=== PATIENT | male | born 1945 | race Caucasian/White ===

== ENCOUNTER 2022-08-15 08:26 | Inpatient (IN) ==
[2022-08-15] MEDS ORDERED: SODIUM CHLORIDE 0.9% 1000ML 500 ML IV ONE (09:25)
[2022-08-15] MEDS ORDERED: SODIUM CHLORIDE 0.9% 1000ML 1,000 ML IV SCH (09:30)
[2022-08-15 09:47] LABS: Basophils # (auto) 0.03 K/uL (0-0.2); Basophils % (auto) 0.5 %; Eosinophils # (auto) 0.15 K/uL (0-0.50); Eosinophils % (auto) 2.6 %; Hematocrit (blood only) 33.4 % (42.0-52.0); Hemoglobin 10.9 g/dl (14.0-18.0); Immature Granulocytes # (auto) 0.04 K/uL (0.01-0.20); Immature Granulocytes % (auto) 0.7 %; Lymphocytes # (auto) 1.02 K/uL (1.2-3.4); Lymphocytes % (auto) 17.4 %; Mean Corpuscular Hemoglobin 31.1 pg (25.0-34.0); Mean Corpuscular Hgb Conc 32.6 g/dL (32.0-36.0); Mean Corpuscular Volume 95.4 fL (80.0-100.0); Mean Platelet Volume 9.7 fL (9.4-12.4); Monocytes % (auto) 8.5 %; Neutrophils # (auto) 4.11 K/uL (1.40-6.50); Neutrophils % (auto) 70.3 %; Platelet Count 293 K/uL (130-400); RDW Coefficient of Variation 13.5 % (11.5-14.5); White Blood Count 5.85 K/ul (4.8-10.8)
[2022-08-15 10:04] LABS: Alanine Aminotransferase 9 U/L (7-52); Albumin Level 3.6 gm/dl (3.4-5.0); Alkaline Phosphatase 88 U/L (34-104); Anion Gap 4 (3-11); Aspartate Aminotransferase 11 U/L (13-39); BUN Creatinine Ratio 15.3 (10-20); Bilirubin,Total 0.3 mg/dl (0.2-1.0); Blood Urea Nitrogen 19 mg/dl (6-23); C Reactive Protein < 0.50 mg/dl (0-0.5); Calcium 9.8 mg/dl (8.6-10.3); Carbon Dioxide 25 mmol/L (21-32); Chloride 105 mmol/L (98-107); Est GFR (African American) 65.5 ml/min; Est GFR (Non-African American) 56.5 ml/min; Globulin 3.7 gm/dl (2.5-4.0); Glucose 101 mg/dl (70-99(Fasting)); Lipase 40 U/L (11-82); Potassium 4.4 mmol/L (3.5-5.1); Sodium 134 mmol/L (136-145); Total Protein 7.3 gm/dl (6.0-8.3)
[2022-08-15 10:15] LABS: INR 2.3 (0.9-1.1)
[2022-08-15] MEDS ORDERED: ONDANSETRON INJ 2 MG/ML 2 ML VIAL IV STA (10:29)
[2022-08-15] MEDS: HYDROmorphone INJ 0.5 MG/0.5 ML SYR IV PRN ×2 (10:40→22:01)
--- NOTE | 2022-08-15 10:42 | CT Scan Report ---
ABDOMEN AND PELVIS CT WITHOUT CONTRAST CT DOSE: HISTORY: Left lower quadrant abd pain, low back pain TECHNIQUE: Multiaxial CT images of the abdomen and pelvis were performed without contrast. A dose lo wering technique was utilized adhering to the principles of ALARA. COMPARISON STUDY: Lumbar spine CT 06/22/2022. FINDINGS: Small calcified pleural plaque within the left lung posteriorly. No pneumoperitoneum. No pn eumatosis. There are poststernotomy changes. Old, healed left-sided rib fractures are noted. Paravert ebral edema at the L3-L4 level has progressed. There scattered erosive changes within the inferior en dplate of L3 and superior endplate of L4 which have also progressed. Dominant focus of erosion at the inferior endplate of L3 measures 1.8 cm. There is an acute nondisplaced fracture within the left lat eral aspect of the L3 inferior endplate. No significant loss of height at this time. Mild dextroscoli osis again noted. Pacemaker wires are noted. Cholelithiasis. No gallbladder wall thickening. There ar e 2 small hypodense lesions within the liver with the largest measuring 8 mm. These are technically t oo small to characterize but favor cysts. The unenhanced spleen, adrenal glands, and pancreas unremar kable. No renal or ureteral stones. No hydronephrosis. There is a 1 cm hypodense lesion within the up per pole of the right kidney. This is incompletely characterized on this noncontrast study but favors a cyst. No retroperitoneal lymphadenopathy. Moderate calcified plaque within the normal caliber abdo hailey aorta. No pelvic lymphadenopathy or pelvic free fluid. Normal bladder. Suboptimal evaluation fo r bowel pathology due to the lack of intravenous and oral contrast. However, there is no definite bow el wall thickening or obstruction. The appendix is surgically absent. IMPRESSION: 1. Progressive erosive change and paravertebral edema at the L3-L4 disc space level with a small acut e fracture at the left side of the L3 inferior endplate. No significant loss of height at this time. The progressive erosive change is nonspecific but concerning for a discitis/osteomyelitis. Pathologic lesions are considered less likely. 2. No bowel wall thickening or obstruction. 3. Cholelithiasis. No gallbladder wall thickening. 4. Additional findings as described above. ACT 112: Negative or not required by law. Electronically signed by: Alvarado Loo M.D. 08/15/2022 10:41 AM
[2022-08-15 10:54] LABS: Appearance Urine Clear (Clear); Bilirubin Urine Negative (Negative); Blood Urine Negative (Negative); Color Urine Yellow; Glucose Urine UA Negative (Negative); Ketones Urine Negative (Negative); Leukocyte Esterase Urine Negative (Negative); Nitrite Urine Negative (Negative); Protein Urine Negative (Negative); Specific Gravity Urine 1.013 (1.000-1.030); Urobilinogen Urine Negative (Negative); pH Urine 5.5 (4.5-7.5)
--- NOTE | 2022-08-15 11:13 | CT Scan Report ---
CT SCAN OF THE LUMBAR SPINE WITHOUT IV CONTRAST CLINICAL HISTORY: Low back pain. COMPARISON STUDY: CT scan of the lumbar spine dated 06/22/2022. TECHNIQUE: CT scan of the lumbar spine is performed from the lower thoracic spine to the sacrum. Imag es are reviewed in the axial, sagittal, and coronal planes. IV contrast was not administered for this examination. A dose lowering technique was utilized adhering to the principles of ALARA. CT DOSE: 1391.09 mGy.cm FINDINGS: The skeletal structures are osteopenic. Vertebral body height is maintained throughout the lumbar spine. There is a small acute fracture of the left inferior endplate of L3. No additional acut e fracture is seen. There is no malalignment. There is developing erosive change within the inferior endplate of L3 and the superior endplate of L4 with significant paravertebral edema. This represents a significant change from 06/22/2022. The appearance is highly suspicious for discitis/osteomyelitis. T he transverse and spinous processes appear intact. Anterior and lateral marginal osteophytes are seen throughout. There is no spondylolysis. No osteoblastic disease is seen. There is moderate disc space narrowing at L3-L4. Mild disc space narrowing is seen at the remaining lumbar levels. Posterior disc osteophyte complexes are seen at several levels. There is no CT evidence of high-grade central canal stenosis. Mild facet arthropathy is noted in the lower lumbar region. Minimal dextrocurvature is yolanda tered at L3. The visualized sacrum and bony pelvis appear intact. There is mild fatty atrophy of the paraspinous musculature. Advanced atherosclerotic calcification is noted in the abdominal aorta. IMPRESSION: 1. There is significant erosive endplate change on both sides of the disc at L3-L4 with associated pa ravertebral edema. This has significantly progressed as compared to 06/22/2022 and is highly suspicious for discitis/osteomyelitis. Rapidly progressive erosive degenerative change is considered less likel y but could appear similar. Clinical correlation will be essential. 2. Small acute fracture of the left side of the L3 inferior endplate. 3. No additional fracture is identified. 4. Osteopenia and mild spondylosis as above. ACT 112: Negative or not required by law. Dictated: 08/15/2022 10:14 AM Transcribed: 08/15/2022 11:09 AM Michael [id number] [email or web address] Electronically signed by: Narinder Barbour M.D. 08/15/2022 11:11 AM
--- NOTE | 2022-08-15 11:35 | History & Physical Report ---
Date of Service August 15, 2022 Assessment & Plan (1) Fracture of lumbar spine: Plan: - Admit to med surg - INR 2.3 today, given vitamin K 5 mg p.o., will hold Coumadin and Plavix dosing tonight, planning for radiology, IR procedure to evaluate for discitis tomorrow. Need INR to be 1.5 or less. Trend with a.m. labs. Discussed with Dr. Loo -Pain management ordered, bowel regimen -WBC 5.85, afebrile, lactate 0.9, hold on IV antibiotic until after fluid anal ysis if possible, blood cultures x2, CRP negative, ESR 56 -Imaging reviewed personally: Progressive erosive change and paravertebral edema at the L3-L4 disc space level with a small acute fracture at the left side of the L3 inferior endplate. No significant loss of height at this time. The progressive erosive change is nonspecific but concerning for a discitis/osteomyelitis. Pathologic lesions are considered less likely. -PT/OT consults -Consult Dr. Mario, ortho spine for further recommendations (2) CAD (coronary artery disease): (3) S/P CABG x 4: (4) Paroxysmal A-fib: (5) Pacemaker: (6) Anticoagulated: (7) HTN (hypertension): (8) HLD (hyperlipidemia): Plan: -May continue all home medications except for holding Coumadin and Plavix today secondary to above -Amiodarone 200 mg, atorvastatin 80 mg, Imdur 30 mg, HCTZ 12.5 mg, losartan 100 mg, potassium supplement - Last echo reviewed from May 2012 showing mild aortic sclerosis, left ventricular systolic function is normal. No segmental wall motion abnormality. LVEF 60%. - Last EKG reviewed from 06/15/22 showing atrial paced rhythm with prolonged AV conduction. (9) DM type 2 (diabetes mellitus, type 2): Plan: -Last A1c was 5.8, recheck with a.m. labs -ISS with Accu-Cheks ACHS, holding metformin - Allow diet today and will make NPO after midnight (10) Chronic kidney disease (CKD), stage III (moderate): Plan: - Cr./BUN stable, trend with am labs DVT PPx: - scds, holding Coumadin and Plavix as above CODE: Conditional code, no CPR, intubation okay Dispo: From home, likely to remain in the hospital x 1-2 days A total of 80 minutes were spent with greater than 50% of that time face to face with the patient, personally reviewing all current laboratories, imaging studies, past medication reconciliation, outpatient chart review, and discussion with specialists to collaborate care for the patient with attending. Please see attending documentation for corrections and/or additions. History of Present Illness Chief Complaint: Back pain Primary Care Provider: PRATIBHA Valdez This is a 77-year-old male with PMHx of CAD, CABG, paroxysmal A-fib with pacemaker, anticoagulated with Coumadin and Plavix, HTN, CKD, DM type II. He sustained a mechanical fall on 05/26/2022 where he subsequently developed lower back pain which radiated down into the left buttock, lateral thigh and occasionally into his calf. He presented to [facility] emergency on multiple occasions since such injury. CT L hip - no acute fracture or AVN, mild OA. CT lumbar spine - mild scoliotic curvature with subtle defect of anterior superior endplate L4 which is new since 10/06/21, moderate facet arthropathy, no significant central or foraminal narrowing. CT pelvis - no acute fracture. Surgical consultation 06/25, recommended conservative care for the subtle compression fracture at L3/4. He was recently set up to follow with orthopedic spine in [facility], and is scheduled on 08/27/2022. He then is temporarily scheduled for lumbar spine procedure on 09/30 at [facility]. It appears that they were going to hold Plavix x1 week and Coumadin x5 days prior to this procedure on outpatient epic review. Today the patient INR is 2.3. He reports that his pain has gotten worse over the last few days, has been using a cane and a walker at baseline, and notes that his pain currently is a 6/7 after receiving medication here in the ER. At home he has only been using Tylenol. He did not feel that he can wait until mid September for a pain management injection in his spine, so presented here in hopes of getting things expedited. Allergies Allergy/AdvReac Type Severity Reaction Status Date / Time tamsulosin [From Flomax] Allergy Severe It made me Unverified 08/15/22 11:24 pass out Home Medications Medication Instructions Recorded Confirmed Type amiodarone 200 mg tablet 200 mg PO QAM 08/15/22 08/15/22 History atorvastatin 80 mg tablet 80 mg PO HS 08/15/22 08/15/22 History clopidogrel 75 mg tablet 75 mg PO QAM 08/15/22 08/15/22 History cyanocobalamin (vitamin B-12) 1,000 mcg PO DAILY 08/15/22 08/15/22 History 1,000 mcg tablet (Vitamin B-12) gabapentin 100 mg capsule 100 mg PO TID 08/15/22 08/15/22 History hydrochlorothiazide 12.5 mg capsule 12.5 mg PO QAM 08/15/22 08/15/22 History isosorbide mononitrate 30 mg 30 mg PO QAM 08/15/22 08/15/22 History tablet,extended release 24 hr lidocaine 4 % topical patch 1 patch topical QAM PRN Pain 08/15/22 08/15/22 History losartan 100 mg tablet 100 mg PO QAM 08/15/22 08/15/22 History metformin 500 mg tablet,extended 500 mg PO BID 08/15/22 08/15/22 History release 24 hr metoprolol tartrate 50 mg tablet 50 mg PO BID 08/15/22 08/15/22 History nitroglycerin 0.4 mg sublingual 0.4 mg sublingual DIRECTED PRN 08/15/22 08/15/22 History tablet Chest Pain potassium chloride 10 mEq 10 meq PO BID 08/15/22 08/15/22 History tablet,extended release sertraline 100 mg tablet 200 mg PO DAILY 08/15/22 08/15/22 History sildenafil (pulm.hypertension) 20 20 mg PO DAILY PRN Sexual Activity 08/15/22 08/15/22 History mg tablet tizanidine 4 mg tablet 2 - 4 mg PO BID PRN MUSCLE SPASMS 08/15/22 08/15/22 History warfarin 2 mg tablet 2 mg PO HS 08/15/22 08/15/22 History Past Med/Surg History Medical History (Updated 08/15/22 @ 15:20 by Judd Flores MD) Anticoagulated Bilateral carotid artery stenosis CAD (coronary artery disease) Chronic kidney disease (CKD), stage III (moderate) DM type 2 (diabetes mellitus, type 2) Fall HLD (hyperlipidemia) HTN (hypertension) Lower back pain Pacemaker Paroxysmal A-fib Surgical History (Updated 08/15/22 @ 11:42 by Amanda Grove PA-C) H/O abdominal surgery Hx of appendectomy Hx of colonoscopy Hx of esophagogastroduodenoscopy S/P CABG x 4 S/P cataract surgery Status post trigger finger release Family History (Updated 08/15/22 @ 11:43 by Amanda Grove PA-C) Father Cancer Mother Coronary heart disease Social History (Updated 08/15/22 @ 11:43 by Amanda Grove PA-C) Smoking Status: Never smoker Hx Alcohol Use: Yes Alcohol type: beer Alcohol type Comment: 2 per week Feels Safe at Home: Yes Review of Systems Review of Systems: constitutional: No fever, sweats or chills Eyes: No diplopia, no worsening or blurred vision ENT: normal hearing, no trouble swallowing Respiratory: No cough, sputum, dyspnea at rest or on exertion Cardiovascular: No chest pain, tightness or palpitations Abdomen: No pain, nausea, vomiting, diarrhea or constipation Musculoskeletal: No joint pain, calf pain, swelling Back: lumbar back pain, worse in the left side, buttocks and sometimes down the left leg Neurologic: No weakness, numbness/tingling, or balance problems, using a cane/walker at baseline Psychiatric: No anxiety or depression Skin: No rash or itch Physical Exam Physical Exam: General: awake, alert, no apparent distress, +unkempt Head: Normocephalic, atraumatic ENT: PERRL, EOMI, no pharyngeal exudate, mucous membranes moist, + poor dentition Chest: Clear to auscultation, on room air, no adventitious breath sounds Cardiac: Regular rate and rhythm, no murmur, no JVD, normal peripheral pulses, good capillary refill Abdominal: NABS x 4 quadrants, soft, nondistended, nontender to palpation, no rebound or guarding Back: Point tenderness over L3-L4 space, pain with palpation along left sided lower back Extremities: Normal inspection, no peripheral edema or erythema, calfs nontender to palpation Psych: Normal mood and affect Neuro: AAO x 3, strength intact bilaterally and rated 5/5, no motor deficits, speech is clear, no peripheral sensory deficits Skin: arec Results & Data Results & Data Vital Signs (Past 12 Hours) Vital Signs Temp Pulse Pulse Resp BP BP Pulse Ox 08/15/22 10:15 58 L 18 162/91 H 100 08/15/22 09:21 121/81 08/15/22 08:36 36.6 C 56 L 19 87/60 L 96 O2 Del Method 08/15/22 10:15 Room Air 08/15/22 09:21 08/15/22 08:36 Room Air Laboratory Results 08/15/22 11:31 Aerobic Blood Culture - Pending Blood Anaerobic Blood Culture - Pending 08/15/22 11:43 Aerobic Blood Culture - Pending Blood Anaerobic Blood Culture - Pending 08/15/22 08/15/22 08/15/22 11:31 10:40 09:34 WBC RBC Hgb Hct MCV MCH MCHC RDW Std Deviation RDW Coeff of Ju Plt Count MPV Immature Gran % (Auto) Neut % (Auto) Lymph % (Auto) [place] % (Auto) Eos % (Auto) Baso % (Auto) Neut # (Auto) Lymph # (Auto) [place] # (Auto) Eos # (Auto) Baso # (Auto) Immature Gran # (Auto) ESR PT INR Sodium 134 L Potassium 4.4 Chloride 105 Carbon Dioxide 25 Anion Gap 4 BUN 19 Creatinine 1.24 Est Cr Clr Drug Dosing Not Reportable Est GFR ( Amer) 65.5 Est GFR (Non-Af Amer) 56.5 BUN/Creatinine Ratio 15.3 Glucose 101 H Lactate 0.9 Calcium 9.8 Total Bilirubin 0.3 AST 11 L ALT 9 Alkaline Phosphatase 88 C-Reactive Protein < 0.50 Total Protein 7.3 Albumin 3.6 Globulin 3.7 Albumin/Globulin Ratio 1.0 Lipase 40 Urine Color Yellow Urine Appearance Clear Urine pH 5.5 Ur Specific [place] 1.013 Urine Protein Negative Urine Glucose (UA) Negative Urine Ketones Negative Urine Blood Negative Urine Nitrite Negative Urine Bilirubin Negative Urine Urobilinogen Negative Ur Leukocyte Esterase Negative 08/15/22 08/15/22 08/15/22 09:34 09:34 09:34 WBC 5.85 RBC 3.50 L Hgb 10.9 L Hct 33.4 L MCV 95.4 MCH 31.1 MCHC 32.6 RDW Std Deviation 47.0 H RDW Coeff of Ju 13.5 Plt Count 293 MPV 9.7 Immature Gran % (Auto) 0.7 Neut % (Auto) 70.3 Lymph % (Auto) 17.4 [place] % (Auto) 8.5 Eos % (Auto) 2.6 Baso % (Auto) 0.5 Neut # (Auto) 4.11 Lymph # (Auto) 1.02 L [place] # (Auto) 0.50 Eos # (Auto) 0.15 Baso # (Auto) 0.03 Immature Gran # (Auto) 0.04 ESR 56 H PT 24.0 H INR 2.3 H Sodium Potassium Chloride Carbon Dioxide Anion Gap BUN Creatinine Est Cr Clr Drug Dosing Est GFR ( Amer) Est GFR (Non-Af Amer) BUN/Creatinine Ratio Glucose Lactate Calcium Total Bilirubin AST ALT Alkaline Phosphatase C-Reactive Protein Total Protein Albumin Globulin Albumin/Globulin Ratio Lipase Urine Color Urine Appearance Urine pH Ur Specific [place] Urine Protein Urine Glucose (UA) Urine Ketones Urine Blood Urine Nitrite Urine Bilirubin Urine Urobilinogen Ur Leukocyte Esterase Diagnostic Findings Lumbar Spine CT 08/15/22 09:21 CT SCAN OF THE LUMBAR SPINE WITHOUT IV CONTRAST CLINICAL HISTORY: Low back pain. COMPARISON STUDY: CT scan of the lumbar spine dated 06/22/2022. TECHNIQUE: CT scan of the lumbar spine is performed from the lower thoracic spine to the sacrum. Images are reviewed in the axial, sagittal, and coronal planes. IV contrast was not administered for this examination. A dose lowering technique was utilized adhering to the principles of ALARA. CT DOSE: 1391.09 mGy.cm FINDINGS: The skeletal structures are osteopenic. Vertebral body height is maintained throughout the lumbar spine. There is a small acute fracture of the left inferior endplate of L3. No additional acute fracture is seen. There is no malalignment. There is developing erosive change within the inferior endplate of L3 and the superior endplate of L4 with significant paravertebral edema. This represents a significant change from 06/22/2022. The appearance is highly suspicious for discitis/osteomyelitis. The transverse and spinous processes appear intact. Anterior and lateral marginal osteophytes are seen throughout. There is no spondylolysis. No osteoblastic disease is seen. There is moderate disc space narrowing at L3-L4. Mild disc space narrowing is seen at the remaining lumbar levels. Posterior disc osteophyte complexes are seen at several levels. There is no CT evidence of high-grade central canal stenosis. Mild facet arthropathy is noted in the lower lumbar region. Minimal dextrocurvature is centered at L3. The visualized sacrum and bony pelvis appear intact. There is mild fatty atrophy of the paraspinous musculature. Advanced atherosclerotic calcification is noted in the abdominal aorta. IMPRESSION: 1. There is significant erosive endplate change on both sides of the disc at L3- L4 with associated paravertebral edema. This has significantly progressed as compared to 06/22/2022 and is highly suspicious for discitis/osteomyelitis. Rapidly progressive erosive degenerative change is considered less likely but could appear similar. Clinical correlation will be essential. 2. Small acute fracture of the left side of the L3 inferior endplate. 3. No additional fracture is identified. 4. Osteopenia and mild spondylosis as above. ACT 112: Negative or not required by law. Dictated: 08/15/2022 10:14 AM Transcribed: 08/15/2022 11:09 AM Michael [id number] [email or web address] Electronically signed by: Narinder Barbour M.D. 08/15/2022 11:11 AM Abdomen/Pelvis CT 08/15/22 09:[address] WITHOUT CONTRAST CT DOSE: HISTORY: Left lower quadrant abd pain, low back pain TECHNIQUE: Multiaxial CT images of the abdomen and pelvis were performed without contrast. A dose lowering technique was utilized adhering to the principles of ALARA. COMPARISON STUDY: Lumbar spine CT 06/22/2022. FINDINGS: Small calcified pleural plaque within the left lung posteriorly. No pneumoperitoneum. No pneumatosis. There are poststernotomy changes. Old, healed left-sided rib fractures are noted. Paravertebral edema at the L3-L4 level has progressed. There scattered erosive changes within the inferior endplate of L3 and superior endplate of L4 which have also progressed. Dominant focus of erosion at the inferior endplate of L3 measures 1.8 cm. There is an acute nondisplaced fracture within the left lateral aspect of the L3 inferior endplate. No significant loss of height at this time. Mild dextroscoliosis again noted. Pacemaker wires are noted. Cholelithiasis. No gallbladder wall thickening. There are 2 small hypodense lesions within the liver with the largest measuring 8 mm. These are technically too small to characterize but favor cysts. The unenhanced spleen, adrenal glands, and pancreas unremarkable. No renal or ureteral stones. No hydronephrosis. There is a 1 cm hypodense lesion within the upper pole of the right kidney. This is incompletely characterized on this noncontrast study but favors a cyst. No retroperitoneal lymphadenopathy. Moderate calcified plaque within the normal caliber abdominal aorta. No pelvic lymphadenopathy or pelvic free fluid. Normal bladder. Suboptimal evaluation for bowel pathology due to the lack of intravenous and oral contrast. However, there is no definite bowel wall thickening or obstruction. The appendix is surgically absent. IMPRESSION: 1. Progressive erosive change and paravertebral edema at the L3-L4 disc space level with a small acute fracture at the left side of the L3 inferior endplate. No significant loss of height at this time. The progressive erosive change is nonspecific but concerning for a discitis/osteomyelitis. Pathologic lesions are considered less likely. 2. No bowel wall thickening or obstruction. 3. Cholelithiasis. No gallbladder wall thickening. 4. Additional findings as described above. ACT 112: Negative or not required by law. Electronically signed by: Alvarado Loo M.D. 08/15/2022 10:41 AM Code Status & VTE Plan Code Status Conditional: No chest compressions, ok with invasive airway technique Supervising Physician Co-Signing Physician Notes Pt seen and examined by myself, Anjelica Washington MD on the day of service. Care was coordinated with Amanda Grove PA-C. Please refer to her note for additional information. 77yo gentleman with chronic lumbar fracture and persistent pain. Imaging suggesting possible osteomyelitis/discitis as well. Spine surgery consult, IR for further testing as noted above. Pain control, start empiric antibiotics after test samples obtained by IR. Otherwise as above.
[2022-08-15] MEDS ORDERED: PHYTONADIONE 5 MG TAB PO STA (11:53)
--- NOTE | 2022-08-15 15:21 | Emergency Department Note ---
Impression & Plan Discitis of lumbar region, Closed L3 vertebral fracture ED Provider Note INFORMANT: Patient and family ED PROVIDER(S): Judd Flores MD CHIEF COMPLAINT: Back pain PLAN: Disposition: Admitted Condition: Good Outpatient prescription management: none Referral: None MEDICAL DECISION MAKING: patient presented because of back pain. Blood work and imaging were performed. CBC was negative but ESR was elevated. CRP was within normal limits. The patient Was treated with Dilaudid and Zofran and felt much better. The patient underwent repeat CT imaging and was found to have findings concerning for an osteomyelitis/discitis. L3 fracture present. I did place a consult with orthopedic spine, Dr. Mario. He noted that the patient could be managed here if a IR attempt could be made for culture of the infection. I did discuss this with radiology Dr. Loo and he noted that there interventional PA was qualified for this lumbar procedure. The patient is therapeutic on his INR and this will need to be addressed prior to his procedure being done. [facility] Discussed the case and reviewed the diagnostics and prior conversations. Patient will be admitted by internal medicine, they will consult with radiology and with orthopedic spine. Patient and family updated. They were pleased with the treatment. Patient was admitted for further management. Discussed with manager utilization management After review of the information above and other included data, I feel the patient requires admission. Triage Nursing notes reviewed and agree them. Vital Signs: reviewed and remarkable for no significant abnormalities Prior /Outside records reviewed: Prior ED record and radiology records reviewed. Differential diagnosis: Musculoskeletal, disc herniation, fracture, metastatic disease, cord compress ion, discitis, sciatica, cauda equina, infection, aortic disease, renal colic, gastrointestinal, as well as other pathologies. Diagnostics, as interpreted by me: ECG: none Cardiac Monitoring: none Medical decision rules: none Imaging studies: CT scan as noted above. I refer you to the EMR for further details. HPI: The patient is a 77year old male who presents to the Emergency Room with complaints of back pain. This started about 2 months ago and is worsening. The patient also notes the following associated symptoms, pain radiating down the left leg and into the left lower quadrant. The patient has been prescribed gabapentin and lidocaine patches for relieving factors. Current pain is rated as 10/10. Patient states he was referred for a spine follow-up via telemedicine after a CT scan done here revealed a lumbar fracture. Referral was done by primary office. Patient had a small amount of diarrhea and vomiting 2 days ago. Patient also notes some left lower quadrant abdominal pain pt denies LOC, headache, fevers, chills, diaphoresis, visual changes, neck pain, chest pain, breathing difficulties, nausea, vomiting, melena, hematochezia, urinary symptoms, numbness, weakness, lymphadenopathy, rash, or other complaints. PAST MEDICAL HISTORY: See Below, CAD, diabetes PAST SURGICAL HISTORY: See Below, SOCIAL HISTORY: See Below, non-smoker HOME MEDICATIONS: See Below ALLERGIES: See Below VITALS: See Below PHYSICAL EXAMINATION: GENERAL: Awake, alert, uncomfortable-appearing, in no distress HENT: Normocephalic, atraumatic. Oropharynx dry mucous membranes. EYES: Normal conjunctiva. Sclera non-icteric. NECK: Inspection normal. Non-tender. Supple. No nuchal rigidity. FROM. No masses. RESPIRATORY: Clear to auscultation. No wheezes. No rales. Normal respiratory effort. CARDIAC: Normal rate. Normal rhythm. No murmurs. No rubs. Extremities warm and well perfused. Pulses equal. No JVD. GI: Soft, non-distended. No tenderness to palpation. No rebound or guarding. No masses. RECTAL: Deferred. MUSCULOSKELETAL: Atraumatic. Chest examination reveals no tenderness. The back is symmetrical on inspection without obvious abnormality. Mild lumbar tenderness. There is no CVA tenderness to palpation. No joint edema. LOWER EXTREMITIES: Calves are equal size bilaterally and non-tender. No edema. No discoloration. NEURO: Normal sensorium. No sensory or motor deficits noted. SKIN: No rash or jaundice noted. Past Med/Surg History Medical History (Updated 08/15/22 @ 15:20 by Judd Flores MD) Anticoagulated Bilateral carotid artery stenosis CAD (coronary artery disease) Chronic kidney disease (CKD), stage III (moderate) DM type 2 (diabetes mellitus, type 2) Fall HLD (hyperlipidemia) HTN (hypertension) Lower back pain Pacemaker Paroxysmal A-fib Surgical History (Updated 08/15/22 @ 11:42 by Amanda Grove PA-C) H/O abdominal surgery Hx of appendectomy Hx of colonoscopy Hx of esophagogastroduodenoscopy S/P CABG x 4 S/P cataract surgery Status post trigger finger release Family History (Updated 08/15/22 @ 11:43 by Amanda Grove PA-C) Father Cancer Mother Coronary heart disease Social History (Updated 08/15/22 @ 11:43 by Amanda Grove PA-C) Smoking Status: Never smoker Hx Alcohol Use: Yes Alcohol type: beer Alcohol type Comment: 2 per week Feels Safe at Home: Yes Allergies Allergies Allergy/AdvReac Type Severity Reaction Status Date / Time tamsulosin [From Flomax] Allergy Severe It made me Unverified 08/15/22 11:24 pass out Home Meds Home Medications Medication Instructions Recorded Confirmed amiodarone 200 mg tablet 200 mg PO QAM 08/15/22 08/15/22 atorvastatin 80 mg tablet 80 mg PO HS 08/15/22 08/15/22 clopidogrel 75 mg tablet 75 mg PO QAM 08/15/22 08/15/22 cyanocobalamin (vitamin B-12) 1,000 mcg PO DAILY 08/15/22 08/15/22 1,000 mcg tablet (Vitamin B-12) gabapentin 100 mg capsule 100 mg PO TID 08/15/22 08/15/22 hydrochlorothiazide 12.5 mg capsule 12.5 mg PO QAM 08/15/22 08/15/22 isosorbide mononitrate 30 mg 30 mg PO QAM 08/15/22 08/15/22 tablet,extended release 24 hr lidocaine 4 % topical patch 1 patch topical QAM PRN Pain 08/15/22 08/15/22 losartan 100 mg tablet 100 mg PO QAM 08/15/22 08/15/22 metformin 500 mg tablet,extended 500 mg PO BID 08/15/22 08/15/22 release 24 hr metoprolol tartrate 50 mg tablet 50 mg PO BID 08/15/22 08/15/22 nitroglycerin 0.4 mg sublingual 0.4 mg sublingual DIRECTED PRN 08/15/22 08/15/22 tablet Chest Pain potassium chloride 10 mEq 10 meq PO BID 08/15/22 08/15/22 tablet,extended release sertraline 100 mg tablet 200 mg PO DAILY 08/15/22 08/15/22 sildenafil (pulm.hypertension) 20 20 mg PO DAILY PRN Sexual Activity 08/15/22 08/15/22 mg tablet tizanidine 4 mg tablet 2 - 4 mg PO BID PRN MUSCLE SPASMS 08/15/22 08/15/22 warfarin 2 mg tablet 2 mg PO HS 08/15/22 08/15/22 Results & Data (ED) Vital Signs Vital Signs - 24 hr 08/15/22 08:36 08/15/22 09:21 08/15/22 10:15 Temperature 36.6 C Temperature Source Temporal Artery Scan Pulse Rate 56 L Pulse Rate [Radial] 58 L Pulse Rhythm [Radial] Regular Pulse Strength [Radial] Respiratory Rate 19 18 Respiratory Effort / Characteristics Non-Labored Respiratory Depth Normal Respiratory Pattern Regular Blood Pressure 87/60 L Blood Pressure [Right Arm] 121/81 162/91 H Blood Pressure Mean 69 Blood Pressure Mean [Right Arm] 94 114 Pulse Oximetry 96 100 Oxygen Delivery Method Room Air Room Air Sepsis Recent Fever Within 48 Hours No Sepsis New/Unexplained Change in Mental Status No Sepsis Action Taken by Nursing No Action Required 08/15/22 12:02 08/15/22 12:00 08/15/22 13:00 Temperature Temperature Source Pulse Rate 59 L Pulse Rate [Radial] 61 55 L Pulse Rhythm [Radial] Regular Pulse Strength [Radial] Normal Respiratory Rate 14 21 Respiratory Effort / Characteristics Non-Labored Spontaneous Non-Labored Spontaneous Respiratory Depth Normal Normal Respiratory Pattern Regular Regular Blood Pressure Blood Pressure [Right Arm] 172/97 H 147/108 H Blood Pressure Mean Blood Pressure Mean [Right Arm] 122 121 Pulse Oximetry 100 96 Oxygen Delivery Method Room Air Room Air Sepsis Recent Fever Within 48 Hours Sepsis New/Unexplained Change in Mental Status Sepsis Action Taken by Nursing Laboratory Data 08/15/22 09:34 08/15/22 09:34 Lab Results 08/15/22 08/15/22 08/15/22 Range/Units 09:34 09:34 09:34 WBC 5.85 (4.8-10.8) K/ul RBC 3.50 L (4.70-6.10) M/uL Hgb 10.9 L (14.0-18.0) g/dl Hct 33.4 L (42.0-52.0) % MCV 95.4 (80.0-100.0) fL MCH 31.1 (25.0-34.0) pg MCHC 32.6 (32.0-36.0) g/dL RDW Std Deviation 47.0 H (36.4-46.3) fL RDW Coeff of Ju 13.5 (11.5-14.5) % Plt Count 293 (130-400) K/uL MPV 9.7 (9.4-12.4) fL Immature Gran % (Auto) 0.7 % Neut % (Auto) 70.3 % Lymph % (Auto) 17.4 % Mccreary % (Auto) 8.5 % Eos % (Auto) 2.6 % Baso % (Auto) 0.5 % Neut # (Auto) 4.11 (1.40-6.50) K/uL Lymph # (Auto) 1.02 L (1.2-3.4) K/uL Mccreary # (Auto) 0.50 (0.11-0.59) K/uL Eos # (Auto) 0.15 (0-0.50) K/uL Baso # (Auto) 0.03 (0-0.2) K/uL Immature Gran # (Auto) 0.04 (0.01-0.20) K/uL ESR 56 H (0-20) mm/hr PT 24.0 H (9.0-12.0) Seconds INR 2.3 H (0.9-1.1) Sodium (136-145) mmol/L Potassium (3.5-5.1) mmol/L Chloride (98-107) mmol/L Carbon Dioxide (21-32) mmol/L Anion Gap (3-11) BUN (6-23) mg/dl Creatinine (0.6-1.4) mg/dl Est Cr Clr Drug Dosing Est GFR ( Amer) ml/min Est GFR (Non-Af Amer) ml/min BUN/Creatinine Ratio (10-20) Glucose (70-99(Fasting)) mg/dl Lactate (0.4-2.0) mmol/L Calcium (8.6-10.3) mg/dl Total Bilirubin (0.2-1.0) mg/dl AST (13-39) U/L ALT (7-52) U/L Alkaline Phosphatase (34-104) U/L C-Reactive Protein (0-0.5) mg/dl Total Protein (6.0-8.3) gm/dl Albumin (3.4-5.0) gm/dl Globulin (2.5-4.0) gm/dl Albumin/Globulin Ratio (0.9-2) Lipase (11-82) U/L Urine Color Urine Appearance (Clear) Urine pH (4.5-7.5) Ur Specific [place] (1.000-1.030) Urine Protein (Negative) Urine Glucose (UA) (Negative) Urine Ketones (Negative) Urine Blood (Negative) Urine Nitrite (Negative) Urine Bilirubin (Negative) Urine Urobilinogen (Negative) Ur Leukocyte Esterase (Negative) SARS-CoV-2, RNA, NAAT (NEGATIVE) 08/15/22 08/15/22 08/15/22 Range/Units 09:34 10:40 11:31 WBC (4.8-10.8) K/ul RBC (4.70-6.10) M/uL Hgb (14.0-18.0) g/dl Hct (42.0-52.0) % MCV (80.0-100.0) fL MCH (25.0-34.0) pg MCHC (32.0-36.0) g/dL RDW Std Deviation (36.4-46.3) fL RDW Coeff of Ju (11.5-14.5) % Plt Count (130-400) K/uL MPV (9.4-12.4) fL Immature Gran % (Auto) % Neut % (Auto) % Lymph % (Auto) % Mccreary % (Auto) % Eos % (Auto) % Baso % (Auto) % Neut # (Auto) (1.40-6.50) K/uL Lymph # (Auto) (1.2-3.4) K/uL Mccreary # (Auto) (0.11-0.59) K/uL Eos # (Auto) (0-0.50) K/uL Baso # (Auto) (0-0.2) K/uL Immature Gran # (Auto) (0.01-0.20) K/uL ESR (0-20) mm/hr PT (9.0-12.0) Seconds INR (0.9-1.1) Sodium 134 L (136-145) mmol/L Potassium 4.4 (3.5-5.1) mmol/L Chloride 105 (98-107) mmol/L Carbon Dioxide 25 (21-32) mmol/L Anion Gap 4 (3-11) BUN 19 (6-23) mg/dl Creatinine 1.24 (0.6-1.4) mg/dl Est Cr Clr Drug Dosing Not Reportable Est GFR ( Amer) 65.5 ml/min Est GFR (Non-Af Amer) 56.5 ml/min BUN/Creatinine Ratio 15.3 (10-20) Glucose 101 H (70-99(Fasting)) mg/dl Lactate 0.9 (0.4-2.0) mmol/L Calcium 9.8 (8.6-10.3) mg/dl Total Bilirubin 0.3 (0.2-1.0) mg/dl AST 11 L (13-39) U/L ALT 9 (7-52) U/L Alkaline Phosphatase 88 (34-104) U/L C-Reactive Protein < 0.50 (0-0.5) mg/dl Total Protein 7.3 (6.0-8.3) gm/dl Albumin 3.6 (3.4-5.0) gm/dl Globulin 3.7 (2.5-4.0) gm/dl Albumin/Globulin Ratio 1.0 (0.9-2) Lipase 40 (11-82) U/L Urine Color Yellow Urine Appearance Clear (Clear) Urine pH 5.5 (4.5-7.5) Ur Specific [place] 1.013 (1.000-1.030) Urine Protein Negative (Negative) Urine Glucose (UA) Negative (Negative) Urine Ketones Negative (Negative) Urine Blood Negative (Negative) Urine Nitrite Negative (Negative) Urine Bilirubin Negative (Negative) Urine Urobilinogen Negative (Negative) Ur Leukocyte Esterase Negative (Negative) SARS-CoV-2, RNA, NAAT (NEGATIVE) 08/15/22 Range/Units 11:56 WBC (4.8-10.8) K/ul RBC (4.70-6.10) M/uL Hgb (14.0-18.0) g/dl Hct (42.0-52.0) % MCV (80.0-100.0) fL MCH (25.0-34.0) pg MCHC (32.0-36.0) g/dL RDW Std Deviation (36.4-46.3) fL RDW Coeff of Ju (11.5-14.5) % Plt Count (130-400) K/uL MPV (9.4-12.4) fL Immature Gran % (Auto) % Neut % (Auto) % Lymph % (Auto) % Mccreary % (Auto) % Eos % (Auto) % Baso % (Auto) % Neut # (Auto) (1.40-6.50) K/uL Lymph # (Auto) (1.2-3.4) K/uL Mccreary # (Auto) (0.11-0.59) K/uL Eos # (Auto) (0-0.50) K/uL Baso # (Auto) (0-0.2) K/uL Immature Gran # (Auto) (0.01-0.20) K/uL ESR (0-20) mm/hr PT (9.0-12.0) Seconds INR (0.9-1.1) Sodium (136-145) mmol/L Potassium (3.5-5.1) mmol/L Chloride (98-107) mmol/L Carbon Dioxide (21-32) mmol/L Anion Gap (3-11) BUN (6-23) mg/dl Creatinine (0.6-1.4) mg/dl Est Cr Clr Drug Dosing Est GFR ( Amer) ml/min Est GFR (Non-Af Amer) ml/min BUN/Creatinine Ratio (10-20) Glucose (70-99(Fasting)) mg/dl Lactate (0.4-2.0) mmol/L Calcium (8.6-10.3) mg/dl Total Bilirubin (0.2-1.0) mg/dl AST (13-39) U/L ALT (7-52) U/L Alkaline Phosphatase (34-104) U/L C-Reactive Protein (0-0.5) mg/dl Total Protein (6.0-8.3) gm/dl Albumin (3.4-5.0) gm/dl Globulin (2.5-4.0) gm/dl Albumin/Globulin Ratio (0.9-2) Lipase (11-82) U/L Urine Color Urine Appearance (Clear) Urine pH (4.5-7.5) Ur Specific Celoron (1.000-1.030) Urine Protein (Negative) Urine Glucose (UA) (Negative) Urine Ketones (Negative) Urine Blood (Negative) Urine Nitrite (Negative) Urine Bilirubin (Negative) Urine Urobilinogen (Negative) Ur Leukocyte Esterase (Negative) SARS-CoV-2, RNA, NAAT NEGATIVE (NEGATIVE) Administered Medications Hydromorphone HCl (Hydromorphone Inj 0.5 Mg/0.5 Ml Syr) 0.5 mg IV Q6H PRN PRN Reason: Pain Stop: 08/29/22 10:28 Last Admin: 08/15/22 10:40 Dose: 0.5 mg Documented By: MARYAM Sodium Chloride (Nss 1000ml) 1,000 mls @ 125 mls/hr IV .Q8H ZEENAT Stop: 09/14/22 09:29 Last Admin: 08/15/22 13:03 Dose: Not Given Documented By: AUGUSTIN Discontinued Medications Sodium Chloride (Nss 1000ml) 500 mls @ 999 mls/hr IV .Q31M ONE Stop: 08/15/22 09:55 Last Infusion: 08/15/22 10:47 Dose: 0 mls/hr Documented By: Admin: 08/15/22 10:11 Dose: 999 mls/hr Documented By: MARYAM Ondansetron HCl (Ondansetron Inj 2 Mg/Ml 2 Ml Vial) 4 mg IV NOW STA Stop: 08/15/22 10:30 Last Admin: 08/15/22 10:40 Dose: 4 mg Documented By: MARYAM Phytonadione (Phytonadione 5 Mg Tab) 5 mg PO NOW STA Stop: 08/15/22 11:54 Last Admin: 08/15/22 12:03 Dose: 5 mg Documented By: AUGUSTIN Imaging Data Radiologist's Impression: Lumbar Spine CT 08/15/22 09:21 CT SCAN OF THE LUMBAR SPINE WITHOUT IV CONTRAST CLINICAL HISTORY: Low back pain. COMPARISON STUDY: CT scan of the lumbar spine dated 06/22/2022. TECHNIQUE: CT scan of the lumbar spine is performed from the lower thoracic spine to the sacrum. Images are reviewed in the axial, sagittal, and coronal planes. IV contrast was not administered for this examination. A dose lowering technique was utilized adhering to the principles of ALARA. CT DOSE: 1391.09 mGy.cm FINDINGS: The skeletal structures are osteopenic. Vertebral body height is maintained throughout the lumbar spine. There is a small acute fracture of the left inferior endplate of L3. No additional acute fracture is seen. There is no malalignment. There is developing erosive change within the inferior endplate of L3 and the superior endplate of L4 with significant paravertebral edema. This represents a significant change from 06/22/2022. The appearance is highly suspicious for discitis/osteomyelitis. The transverse and spinous processes appear intact. Anterior and lateral marginal osteophytes are seen throughout. There is no spondylolysis. No osteoblastic disease is seen. There is moderate disc space narrowing at L3-L4. Mild disc space narrowing is seen at the remaining lumbar levels. Posterior disc osteophyte complexes are seen at several levels. There is no CT evidence of high-grade central canal stenosis. Mild facet arthropathy is noted in the lower lumbar region. Minimal dextrocurvature is centered at L3. The visualized sacrum and bony pelvis appear intact. There is mild fatty atrophy of the paraspinous musculature. Advanced atherosclerotic calcification is noted in the abdominal aorta. IMPRESSION: 1. There is significant erosive endplate change on both sides of the disc at L3- L4 with associated paravertebral edema. This has significantly progressed as compared to 06/22/2022 and is highly suspicious for discitis/osteomyelitis. Rapidly progressive erosive degenerative change is considered less likely but could appear similar. Clinical correlation will be essential. 2. Small acute fracture of the left side of the L3 inferior endplate. 3. No additional fracture is identified. 4. Osteopenia and mild spondylosis as above. ACT 112: Negative or not required by law. Dictated: 08/15/2022 10:14 AM Transcribed: 08/15/2022 11:09 AM Michael [id number] [email or web address] Electronically signed by: Narinder Barbour M.D. 08/15/2022 11:11 AM Abdomen/Pelvis CT 08/15/22 09:[address] WITHOUT CONTRAST CT DOSE: HISTORY: Left lower quadrant abd pain, low back pain TECHNIQUE: Multiaxial CT images of the abdomen and pelvis were performed without contrast. A dose lowering technique was utilized adhering to the principles of ALARA. COMPARISON STUDY: Lumbar spine CT 06/22/2022. FINDINGS: Small calcified pleural plaque within the left lung posteriorly. No pneumoperitoneum. No pneumatosis. There are poststernotomy changes. Old, healed left-sided rib fractures are noted. Paravertebral edema at the L3-L4 level has progressed. There scattered erosive changes within the inferior endplate of L3 and superior endplate of L4 which have also progressed. Dominant focus of erosion at the inferior endplate of L3 measures 1.8 cm. There is an acute nondisplaced fracture within the left lateral aspect of the L3 inferior endpla te. No significant loss of height at this time. Mild dextroscoliosis again noted. Pacemaker wires are noted. Cholelithiasis. No gallbladder wall thickening. There are 2 small hypodense lesions within the liver with the largest measuring 8 mm. These are technically too small to characterize but favor cysts. The unenhanced spleen, adrenal glands, and pancreas unremarkable. No renal or ureteral stones. No hydronephrosis. There is a 1 cm hypodense lesion within the upper pole of the right kidney. This is incompletely characterized on this noncontrast study but favors a cyst. No retroperitoneal lymphadenopathy. Moderate calcified plaque within the normal caliber abdominal aorta. No pelvic lymphadenopathy or pelvic free fluid. Normal bladder. Suboptimal evaluation for bowel pathology due to the lack of intravenous and oral contrast. However, there is no definite bowel wall thickening or obstruction. The appendix is surgically absent. IMPRESSION: 1. Progressive erosive change and paravertebral edema at the L3-L4 disc space level with a small acute fracture at the left side of the L3 inferior endplate. No significant loss of height at this time. The progressive erosive change is nonspecific but concerning for a discitis/osteomyelitis. Pathologic lesions are considered less likely. 2. No bowel wall thickening or obstruction. 3. Cholelithiasis. No gallbladder wall thickening. 4. Additional findings as described above. ACT 112: Negative or not required by law. Electronically signed by: Alvarado Loo M.D. 08/15/2022 10:41 AM Discharge Plan Visit Data Chief Complaint: Back Injury/Pain Stated Complaint: BACK FX ED Provider: Judd Flores Discharge Problem: Discitis of lumbar region, Closed L3 vertebral fracture Patient Disposition: Admitted As Inpatient Discharge Instructions Interventions: ED Discharge Assessment Last Done: 08/15/22 14:40 Forms Stand Alone Forms: My [facility] Prescriptions Prescriptions: No Action atorvastatin 80 mg tablet 80 mg PO HS lidocaine 4 % adhesive patch,medicated 1 patch TOPICAL QAM PRN (Reason: Pain) tizanidine 4 mg tablet 2 - 4 mg PO BID PRN (Reason: MUSCLE SPASMS) amiodarone 200 mg tablet 200 mg PO QAM isosorbide mononitrate 30 mg tablet extended release 24 hr 30 mg PO QAM sertraline 100 mg tablet 200 mg PO DAILY cyanocobalamin (vitamin B-12) [Vitamin B-12] 1,000 mcg Tablet 1,000 mcg PO DAILY potassium chloride 10 mEq tablet extended release 10 meq PO BID clopidogrel 75 mg tablet 75 mg PO QAM warfarin 2 mg tablet 2 mg PO HS Rx Instructions: 2 mg on all days except Mon and Fri takes 1 mg metoprolol tartrate 50 mg tablet 50 mg PO BID hydrochlorothiazide 12.5 mg capsule 12.5 mg PO QAM nitroglycerin 0.4 mg tablet, sublingual 0.4 mg sublingual DIRECTED PRN (Reason: Chest Pain) gabapentin 100 mg capsule 100 mg PO TID losartan 100 mg tablet 100 mg PO QAM sildenafil (pulm.hypertension) 20 mg tablet 20 mg PO DAILY PRN (Reason: Sexual Activity) metformin 500 mg tablet extended release 24 hr 500 mg PO BID Referrals Referrals: Tara Banerjee CRNP [Primary Care Provider] -
[2022-08-15] MEDS ORDERED: GLUCOSE 40% GEL 15 GM TUBE PO PRN (17:18)
[2022-08-15] MEDS ORDERED: ONDANSETRON INJ 2 MG/ML 2 ML VIAL IV PRN (17:18)
[2022-08-15] MEDS ORDERED: DEXTROSE 50% 50 ML SYRINGE IV PRN (17:18)
[2022-08-15] MEDS ORDERED: ACETAMINOPHEN 325 MG TAB PO PRN (17:18)
[2022-08-15] MEDS ORDERED: HYDROmorphone INJ 0.5 MG/0.5 ML SYR IV PRN (17:18)
[2022-08-15] MEDS ORDERED: GLUCAGON FOR INJ 1 MG VIAL SQ PRN (17:18)
[2022-08-15] MEDS ORDERED: CARBOHYDRATES FOR HYPOGLYCEMIA PO PRN (17:18)
[2022-08-15] MEDS ORDERED: GLUCOSE 10 TAB/TUBE PO PRN (17:18)
[2022-08-15] MEDS ORDERED: LIDOCAINE 5% 1 PATCH TD PRN (17:26)
[2022-08-15] MEDS: INSULIN ASPART PER UNIT CHARGE SC SCH ×2 (18:16→21:33)
[2022-08-15] MEDS: POLYETHYLENE (MIRALAX) 17 GM PACK PO SCH (18:18)
[2022-08-15] MEDS: GABAPENTIN 100 MG CAP PO SCH ×2 (18:19→20:19)
[2022-08-15] MEDS: METOPROLOL TARTRATE 50 MG TAB PO SCH (18:20)
[2022-08-15] MEDS: bisacodyL 5 MG TABEC PO SCH (18:21)
[2022-08-15] MEDS: oxyCODONE HCL IR 5 MG TAB (IMMEDIATE RELEASE) PO PRN ×2 (18:23→22:46)
[2022-08-15] MEDS: ATORVASTATIN 40 MG TAB PO SCH (20:19)
[2022-08-15] MEDS: POTASSIUM CHLORIDE 10 MEQ TABCR PO SCH (20:19)
[2022-08-16] MEDS ORDERED: LORazepam 2 MG/1 ML VIAL IV STA (03:40)
[2022-08-16] MEDS ORDERED: D5W AND NSS 1,000 ML IV ONE (04:00)
[2022-08-16] MEDS ORDERED: Nursing to Pharmacy Communication SCH (06:00)
--- NOTE | 2022-08-16 06:09 | Communication Note ---
Date of Service: August 16, 2022 340 a.m. Patient woke up with RUE twitching as per RN. Stronger than the spasm as per RN. Full resolution after Ativan administration as per RN No confusion post episode. BSG 81 at time of episode as per RN. Patient complaining of new headache and neck pain symptoms. AP Possible focal seizure Outpatient neurology note from 2018 describes similar episode associated with right temporal headache and neck pain complaints. Medical telemetry transfer for closer monitoring Seizure precautions Ativan prn active seizures CT head, CT neck Re: Pain EEG, Neurology consult for possible focal seizure work-up MRI precluded by patient PPM
[2022-08-16] MEDS ORDERED: LORazepam 2 MG/1 ML VIAL IV PRN (06:11)
--- NOTE | 2022-08-16 06:43 | CT Scan Report ---
Exam(s): CT HEAD Without Contrast EXAM: CT Head Without Intravenous Contrast CLINICAL HISTORY: Headache. TECHNIQUE: Axial computed tomography images of the head/brain without intravenous contrast. CTDI is 37.87 mGy and DLP is 1162.2 mGy-cm. Automated exposure control was utilized for the study. A dose lowering technique was utilized adhering to the principles of ALARA. COMPARISON: No relevant prior studies available. FINDINGS: Brain: No intracranial hemorrhage, mass-effect or midline shift. No abnormal extra axial fluid. No evidence of acute infarct. Mild periventricular white matter hypodensities are most consistent with chronic microangiopathy. Ventricles: Unremarkable. No ventriculomegaly. Bones/joints: Unremarkable. No acute fracture. Soft tissues: Unremarkable. Sinuses: Unremarkable as visualized. No acute sinusitis. Mastoid air cells: Unremarkable as visualized. No mastoid effusion. IMPRESSION: No acute intracranial finding. Electronically signed by: Uyen Love MD 08/16/22 06:42 AM
[2022-08-16] MEDS: INSULIN ASPART PER UNIT CHARGE SC SCH ×4 (06:45→20:19)
[2022-08-16 06:49] LABS: Hematocrit (blood only) 35.5 % (42.0-52.0); Hemoglobin 11.3 g/dl (14.0-18.0); Mean Corpuscular Hemoglobin 30.7 pg (25.0-34.0); Mean Corpuscular Hgb Conc 31.8 g/dL (32.0-36.0); Mean Corpuscular Volume 96.5 fL (80.0-100.0); Platelet Count 296 K/uL (130-400); RDW Coefficient of Variation 13.7 % (11.5-14.5); RDW Standard Deviation 48.7 fL (36.4-46.3); Red Blood Count 3.68 M/uL (4.70-6.10); White Blood Count 5.27 K/ul (4.8-10.8)
--- NOTE | 2022-08-16 07:00 | CT Scan Report ---
Exam(s): CT C SPINE EXAM: CT Cervical Spine Without Intravenous Contrast CLINICAL HISTORY: Reason for exam: neck pain. TECHNIQUE: Axial computed tomography images of the cervical spine without intravenous contrast. CTDI is 24.89 mGy and DLP is 532.35 mGy-cm. Automated exposure control was utilized for the study. A dose lowering technique was utilized adhering to the principles of ALARA. COMPARISON: No relevant prior studies available. FINDINGS: Vertebrae: Unremarkable. No acute fracture. Discs/spinal canal/neural foramina: Moderate to advanced disc degeneration at C5-6 and C6-7. No acute findings. Moderate spinal canal stenosis at C6-7. Soft tissues: Moderate calcified atherosclerotic disease of the carotid bifurcations. IMPRESSION: No evidence of acute cervical spine pathology. Electronically signed by: Luz Elizondo MD 08/16/22 07:00 AM
[2022-08-16 07:10] LABS: BUN Creatinine Ratio 13.5 (10-20); Calcium 9.9 mg/dl (8.6-10.3); Creatinine Clr Calc Pharmacy 59.3 ml/min; Est GFR (African American) 64.2 ml/min; Est GFR (Non-African American) 55.4 ml/min; Potassium 3.8 mmol/L (3.5-5.1)
[2022-08-16 07:18] LABS: INR 1.9 (0.9-1.1)
[2022-08-16] MEDS: ISOSORBIDE MONO EXTENDED REL 30 MG TABCR PO SCH (07:20)
[2022-08-16] MEDS: METOPROLOL TARTRATE 50 MG TAB PO SCH ×2 (07:21→20:13)
[2022-08-16 07:51] LABS: Estimated Average Glucose 134 mg/dl; Hemoglobin A1C 6.3 % (4.5-5.6)
[2022-08-16] MEDS ORDERED: VANCOMYCIN CONSULT ACTIVE PRN ×2 (08:51→08:52)
[2022-08-16] MEDS ORDERED: VANCOMYCIN HCL 2,000 MG in SODIUM CHLORIDE 0.9% 500 ML IV ONE ×2 (08:52→09:02)
[2022-08-16] MEDS ORDERED: PHYTONADIONE 5 MG in DEXTROSE 5% 50 ML IV ONE (09:00)
[2022-08-16] MEDS ORDERED: VANCOMYCIN HCL 2,250 MG in SODIUM CHLORIDE 0.9% 500 ML IV ONE (09:00)
[2022-08-16] MEDS ORDERED: hydroCHLOROthiazide 25 MG TAB PO SCH (09:00)
[2022-08-16] MEDS ORDERED: LOSARTAN POTASSIUM 50 MG TAB PO SCH (09:00)
[2022-08-16] MEDS ORDERED: cefTRIAXone SODIUM 2,000 MG in DEXTROSE 5% 50 ML IV SCH (09:35)
[2022-08-16] MEDS: CYANOCOBALAMIN (B-12) 500 MCG TABLET PO SCH (09:40)
[2022-08-16] MEDS: POTASSIUM CHLORIDE 10 MEQ TABCR PO SCH ×2 (09:41→20:12)
[2022-08-16] MEDS: GABAPENTIN 100 MG CAP PO SCH ×3 (09:41→20:12)
[2022-08-16] MEDS: AMIODARONE 200 MG TAB PO SCH (09:41)
[2022-08-16] MEDS: SERTRALINE HCL 100 MG TABLET PO SCH (09:42)
[2022-08-16] MEDS: POLYETHYLENE (MIRALAX) 17 GM PACK PO SCH (09:42)
[2022-08-16] MEDS: bisacodyL 5 MG TABEC PO SCH (09:42)
[2022-08-16] MEDS: ACETAMINOPHEN 500 MG TAB PO SCH ×3 (09:50→22:28)
--- NOTE | 2022-08-16 11:00 | Neurology Consultation ---
Date of Consultation August 16, 2022 Assessment & Plan (1) Tremor: Tremor of unknown etiology this morning. Seizure is less likely given no post- ictal weakness and pattern of movement as demonstrated by the patient. Reasonable to obtain an EEG however. The response to ativan does not help with the diagnosis as benzos are first line for many different types of tremor. Otherwise unable to obtain MRI but do not see any major central cause on the CT head. Could perhaps have been tremor in response to pain, specifically an enhanced physiologic tremor. We will await EEG but if normal would not pursue further workup or treatment. -- EEG pending, if negative, does not need further workup or treatment -- We will follow for result of EEG to provide final recommendations Telehealth Consultation Telehealth Information Telehealth Information: I performed this visit using a real-time telehealth connection between my location and the patients location ([facility]). After connecting through interactive tele-video, patient was identified by name and date of and/or wristband check.Patient (or authorized healthcare charter representative) was informed that this was a telemedicine visit and it was being conducted confidentially over secure lines. My office door was closed and no one else was present in the room with me.Patient (or authorized healthcare charter representative) provided consent to proceed with the visit, expressed an understanding of privacy and security of the telemedicine visit, and gave permission to have a hospital charter representative in the room in order to assist with the visit and to conduct portions of the visit, as needed. I informed the patient (or authorized healthcare charter representative) that I reviewed their record and presented the opportunity for them to ask any questions regarding the visit today. The patient agreed to participate. History of Present Illness Reason for Consultation: R arm shaking Requesting Physician: Dr. Sanchez Attending Physician: Mckayla Sanchez, DO History of Present Illness Haim Sanchez is a 77 yo M admitted for osteo/discitis near the site of his L3 spine fracture. He has a history of paf on warfarin and plavix as well as a pacemaker. Early this morning he was awake and in pain when he called the nurse for shaking of his R arm. He does not feel he could control the shaking and was not confused. There was no shaking of the face or leg. He demonstrated a medium amplitude fast frequency tremor of the hand and wrist. He is unsure if it was related to the pain he was experiencing but did note that his arm was cold and warmed up after receiving ativan, which also stopped the tremor. Reportedly he had R arm shaking in the past thought to be a partial seizure but the patient does not recall this episode. Overall he denies any weakness of the R arm and no change in strength after the shaking. Allergies Allergy/AdvReac Type Severity Reaction Status Date / Time tamsulosin [From Flomax] Allergy Severe It made me Unverified 08/15/22 11:24 pass out Home Medications Medication Instructions Recorded Confirmed Type amiodarone 200 mg tablet 200 mg PO QAM 08/15/22 08/15/22 History atorvastatin 80 mg tablet 80 mg PO HS 08/15/22 08/15/22 History clopidogrel 75 mg tablet 75 mg PO QAM 08/15/22 08/15/22 History cyanocobalamin (vitamin B-12) 1,000 mcg PO DAILY 08/15/22 08/15/22 History 1,000 mcg tablet (Vitamin B-12) gabapentin 100 mg capsule 100 mg PO TID 08/15/22 08/15/22 History hydrochlorothiazide 12.5 mg capsule 12.5 mg PO QAM 08/15/22 08/15/22 History isosorbide mononitrate 30 mg 30 mg PO QAM 08/15/22 08/15/22 History tablet,extended release 24 hr lidocaine 4 % topical patch 1 patch topical QAM PRN Pain 08/15/22 08/15/22 History losartan 100 mg tablet 100 mg PO QAM 08/15/22 08/15/22 History metformin 500 mg tablet,extended 500 mg PO BID 08/15/22 08/15/22 History release 24 hr metoprolol tartrate 50 mg tablet 50 mg PO BID 08/15/22 08/15/22 History nitroglycerin 0.4 mg sublingual 0.4 mg sublingual DIRECTED PRN 08/15/22 08/15/22 History tablet Chest Pain potassium chloride 10 mEq 10 meq PO BID 08/15/22 08/15/22 History tablet,extended release sertraline 100 mg tablet 200 mg PO DAILY 08/15/22 08/15/22 History sildenafil (pulm.hypertension) 20 20 mg PO DAILY PRN Sexual Activity 08/15/22 08/15/22 History mg tablet tizanidine 4 mg tablet 2 - 4 mg PO BID PRN MUSCLE SPASMS 08/15/22 08/15/22 History warfarin 2 mg tablet 2 mg PO HS 08/15/22 08/15/22 History Patient History Medical History (Updated 08/16/22 @ 11:06 by Jared Strong MD) Anticoagulated Bilateral carotid artery stenosis CAD (coronary artery disease) Chronic kidney disease (CKD), stage III (moderate) DM type 2 (diabetes mellitus, type 2) Fall HLD (hyperlipidemia) HTN (hypertension) Lower back pain Pacemaker Paroxysmal A-fib Surgical History (Updated 08/15/22 @ 11:42 by Amanda Grove PA-C) H/O abdominal surgery Hx of appendectomy Hx of colonoscopy Hx of esophagogastroduodenoscopy S/P CABG x 4 S/P cataract surgery Status post trigger finger release Family History (Updated 08/15/22 @ 11:43 by Amanda Grove PA-C) Father Cancer Mother Coronary heart disease Social History (Updated 08/15/22 @ 11:43 by Amanda Grove PA-C) Smoking Status: Never smoker Hx Alcohol Use: No Hx Substance Use: No Preferred Language: Bangladeshi Communication Ability: Effective Engraver Machine Required: No Beliefs That Will Affect Care: None Current Living Situation: Family Current Living Situation Comment: Home with son Other Information That Helps Us Care for You: No Feels Safe at Home: Yes Safety Concerns: Feels Safe At This Time Assistive Devices: Cane, Glasses and Hearing Aid - Bilateral Review of Systems +R arm shaking Physical Exam Neurological Examination: Mental Status: Awake and alert. Oriented to person, place, and time. Fluent, no dysarthria. Comprehension intact. Affect appropriate. Cranial Nerves: II: latham grossly intact. III/IV/: Versions intact without nystagmus, no gaze preference. V: Facial sensation symmetric to light touch VII: Facial expression symmetric VIII: Hearing intact to voice XII: Tongue midline Motor: Strength was symmetric and antigravity in the upper extremities. Pronator drift was absent. There were no abnormal movements. Coordination: Movements were not dysmetric Reflexes: Unable to assess over telemedicine Results & Data Vital Signs (Past 12 Hours) Vital Signs Temp Pulse Pulse Resp BP Pulse Ox O2 Del Method 08/16/22 10:02 87 144/78 H 08/16/22 07:17 36.3 C L 61 18 193/85 H 99 Room Air 08/16/22 03:30 36.4 C L 62 20 159/99 H 94 Room Air Laboratory Results Abnormal lab results 08/16/22 08/16/22 08/16/22 Range/Units 06:03 06:03 06:03 RBC 3.68 L (4.70-6.10) M/uL Hgb 11.3 L (14.0-18.0) g/dl Hct 35.5 L (42.0-52.0) % MCHC 31.8 L (32.0-36.0) g/dL RDW Std Deviation 48.7 H (36.4-46.3) fL PT 20.0 H (9.0-12.0) Seconds INR 1.9 H (0.9-1.1) Hemoglobin A1c 6.3 H (4.5-5.6) % Diagnostic Findings CT head unremarkable
[2022-08-16] MEDS: cefTRIAXone SODIUM 2,000 MG in DEXTROSE 5% 50 ML IV SCH (11:03)
--- NOTE | 2022-08-16 11:28 | Pharmacy Report ---
Pharmacy PK ABX Note - Date of Service August 16, 2022 - Assessment and Plan Assessment 77 year old M receiving empiric vancomycin and ceftriaxone for concern of possible discitis/osteomyelitis in context of lumbar spinal fracture. Pertinent microbiologic data includes: blood cultures x 2 (08/15) pending. Patient afebrile with no overt leukocytosis. Pertinent PMH includes T2DM and CKD (SCr: 1.26 mg/dL today). Day # 1 of antimicrobial therapy. Plan Vancomycin * Loading dose: 2250 mg IV x 1 * Maintenance dose: 1250 mg IV every 18 hours * Regimen is predicted to achieve target AUC/ANG of 400-600 mg/L.hr * Random level ordered for: 08/18/22 Ceftriaxone * 2 g IV q24h - appropriate, no change Pharmacy will continue to follow and will adjust dose/frequency as necessary. Thank you. Pharmacy has transitioned to AUC monitoring for vancomycin. AUC/ANG is the preferred PK/PD target and is associated with decreased risk of nephrotoxicity compared to traditional trough targets.
[2022-08-16] MEDS: oxyCODONE HCL IR 5 MG TAB (IMMEDIATE RELEASE) PO PRN (11:30)
--- NOTE | 2022-08-16 12:04 | Orthopedic Consultation ---
Date of Consultation August 16, 2022 Assessment & Plan (1) Fracture of lumbar spine: Patient presents with increasing back pain and new endplate abnormalities in L3 and L4. He denies any trauma. This may possibly represent discitis. The plan at this point is to have him undergo a CT-guided needle biopsy through interventional radiology. If an organism is found he may need to be treated for discitis. He is on blood thinners and the reversing them now. We will await the biopsy result. We will make further recommendations once more information is available. History of Present Illness Attending Physician: Mckayla Sanchez DO History of Present Illness Patient is a 77-year-old male who presented to the emergency room with uncontrolled back pain. He has had chronic back pain for years. He states that this episode is worse than normal and made it difficult for him to stand or walk. He is gone to the emergency room in June and they performed a CT scan. They performed a new one on this visit. He was noted to have endplate changes at L3-[address] scan which was thought to be discitis. He has been admitted to the hospital. He has diffuse pain in his legs which is his baseline. He is not have any weakness in his legs. While examining the patient he states his back pain is worse with a just moved him onto a different bed. He denies any fevers or chills. He denies any other numbness, tingling, or paresthesias. Allergies Allergy/AdvReac Type Severity Reaction Status Date / Time tamsulosin [From Flomax] Allergy Severe It made me Unverified 08/15/22 11:24 pass out Home Medications Medication Instructions Recorded Confirmed Type amiodarone 200 mg tablet 200 mg PO QAM 08/15/22 08/15/22 History atorvastatin 80 mg tablet 80 mg PO HS 08/15/22 08/15/22 History clopidogrel 75 mg tablet 75 mg PO QAM 08/15/22 08/15/22 History cyanocobalamin (vitamin B-12) 1,000 mcg PO DAILY 08/15/22 08/15/22 History 1,000 mcg tablet (Vitamin B-12) gabapentin 100 mg capsule 100 mg PO TID 08/15/22 08/15/22 History hydrochlorothiazide 12.5 mg capsule 12.5 mg PO QAM 08/15/22 08/15/22 History isosorbide mononitrate 30 mg 30 mg PO QAM 08/15/22 08/15/22 History tablet,extended release 24 hr lidocaine 4 % topical patch 1 patch topical QAM PRN Pain 08/15/22 08/15/22 History losartan 100 mg tablet 100 mg PO QAM 08/15/22 08/15/22 History metformin 500 mg tablet,extended 500 mg PO BID 08/15/22 08/15/22 History release 24 hr metoprolol tartrate 50 mg tablet 50 mg PO BID 08/15/22 08/15/22 History nitroglycerin 0.4 mg sublingual 0.4 mg sublingual DIRECTED PRN 08/15/22 08/15/22 History tablet Chest Pain potassium chloride 10 mEq 10 meq PO BID 08/15/22 08/15/22 History tablet,extended release sertraline 100 mg tablet 200 mg PO DAILY 08/15/22 08/15/22 History sildenafil (pulm.hypertension) 20 20 mg PO DAILY PRN Sexual Activity 08/15/22 08/15/22 History mg tablet tizanidine 4 mg tablet 2 - 4 mg PO BID PRN MUSCLE SPASMS 08/15/22 08/15/22 History warfarin 2 mg tablet 2 mg PO HS 08/15/22 08/15/22 History Patient History Medical History (Updated 08/16/22 @ 11:06 by Jared Strong MD) Anticoagulated Bilateral carotid artery stenosis CAD (coronary artery disease) Chronic kidney disease (CKD), stage III (moderate) DM type 2 (diabetes mellitus, type 2) Fall HLD (hyperlipidemia) HTN (hypertension) Lower back pain Pacemaker Paroxysmal A-fib Surgical History (Updated 08/15/22 @ 11:42 by Amanda Grove PA-C) H/O abdominal surgery Hx of appendectomy Hx of colonoscopy Hx of esophagogastroduodenoscopy S/P CABG x 4 S/P cataract surgery Status post trigger finger release Family History (Updated 08/15/22 @ 11:43 by Amanda Grove PA-C) Father Cancer Mother Coronary heart disease Social History (Updated 08/15/22 @ 11:43 by Amanda Grove PA-C) Smoking Status: Never smoker Hx Alcohol Use: No Hx Substance Use: No Preferred Language: Hebrew Communication Ability: Effective Jig And Fixture Builder Required: No Beliefs That Will Affect Care: None Current Living Situation: Family Current Living Situation Comment: Home with son Other Information That Helps Us Care for You: No Feels Safe at Home: Yes Safety Concerns: Feels Safe At This Time Assistive Devices: Cane, Glasses and Hearing Aid - Bilateral Physical Exam Physical Exam: On exam he is alert and oriented. He answers questions appropriately. His lower extremity motor exam reveals no focal atrophy strength and sensation are both intact his strength is 5 out of 5 to detailed muscle testing of his lower extremities. His skin is clean dry and intact. His abdomen soft nontender his Calves are supple nontender. Visual latham are grossly intact. Cardiovascular exam reveals no gross abnormalities. Results & Data Vital Signs (Past 12 Hours) Vital Signs Temp Pulse Pulse Resp BP Pulse Ox O2 Del Method 08/16/22 10:02 87 144/78 H 08/16/22 07:17 36.3 C L 61 18 193/85 H 99 Room Air 08/16/22 03:30 36.4 C L 62 20 159/99 H 94 Room Air Diagnostic Findings CT scan of the lumbar spine was reviewed and compared to the CT scan from June. There have been changes in the endplates inferiorly of L3 and superiorly of L4. There is been disc base collapse as well. There is baseline spondylosis. No other fractures or subluxations are noted.
[2022-08-16 12:22] LABS: INR 1.7 (0.9-1.1); Prothrombin Time 18.2 Seconds (9.0-12.0)
--- NOTE | 2022-08-16 19:43 | Hospitalist Progress Note ---
Date of Service August 16, 2022 Assessment & Plan (1) Closed L3 vertebral fracture: Plan: Trauma in May with subsequent L3 fracture, persistent pain and now with urinary incontinence. Had a UTI but this has long since been treated and no further evidence of infxn on repeat UA. CT reveals progressive erosive change and paravertebral edema at the L3-L4 disc space level with a small acute fracture at the left side of the L3 inferior endplate. No significant loss of height at this time. The progressive erosive change is nonspecific but concerning for a discitis/osteomyelitis. Pathologic lesions are considered less likely. -holding Plavix, ASA in preparation for IR-guided aspiration for culture -holding warfarin-vit K was given, however, procedure couldn't be performed until Fri as INR still too high. -Pain management ordered, bowel regimen -broad abx started including vancomycin and Rocpehin -consult infectious disease -PT/OT consults -ortho spine also following his progress in the hospital. (2) Discitis of lumbar region: Plan: Vanc/Rocephin, supportive care, ID consult. Blood cultures negative. Possible direct inoculation from trauma? Of note patient lives in a trailer on [address] and is retired. He cares for chickens, dogs, guinea pigs, and has two canaries. Per [facility] inpatient records review, he had a syncopal episode at the time of the fall because of a medication side effect for one that makes him drowsy. (3) Tremor: Plan: resolved, uncertain etiology. Neuro saw him this am and recommended an EEG although seizure was felt to be less likely given no post-ictal weakness or pattern of movement as demonstrated by the patient. Could have been a tremor in reposne to pain. If EEG is negative, he doesn't require further workup at this time. (4) CAD (coronary artery disease): Plan: CABG x 4 in 2006, holding ASA and plavix for now in preparation for IR procedure Friday. Cont medical management with atorvastatin, imdur, losartan (5) Paroxysmal A-fib: Plan: warfarin held, currently paced rhythm on telemetry. Cont Lopressor BID and amiodarone per home regimen. (6) HTN (hypertension): Plan: hypotensive yesterday morning so antihypertensives were held. Now BP persistently elevated so add back HCTZ 12.5 daily and losartan 100 daily (7) DM type 2 (diabetes mellitus, type 2): Plan: -Last A1c was 5.8, recheck with a.m. labs -ISS with Accu-Cheks ACHS, holding metformin -inpatient BSG at goal (8) Chronic kidney disease (CKD), stage III (moderate): Plan: chronic, stable. Cont to monitor DVT PPx: - scds pending upcoming procedure. CODE: Conditional code, no CPR, intubation okay Dispo: pending IR procedure on Friday and PT/OT recommendations. I spent a total of60 minutes coordinating, documenting, and providing care for this patient excluding time spent in the performance of separately billed services Mckayla Sanchez DO [facility] and [facility]ticipated Discharge Date Admission Date: August 15, 2022 Subjective 77 yo M presents for persistent lower back pain since a fall in May in his trailer. He reports no improvement of the pain in his lumbar spine with radiculopathy that can be prooked by movement such as sitting up or getting up This is affecting his QOL He reports a UTI that was treated last month but no other fevers, chills or infectious symptoms Blood cultures are negative so far. CT reveals possible discitis and he was started on antibiotic therapy Anticoagulated so when INR< 1/5 will pursue an IR guided biopsy in the spine. MRI not available at [facility] time 2/2 pacemaker. Pain is reported to be a 4/10 He is able to sit up and move around slowly but this provokes pain tolerating PO but had 10 lb weight loss Review of Systems Review of Systems: All systems were reviewed and negative except as indiated on HPI above. Physical Exam Physical Exam: CONSTITUTIONAL: WNWD, vitals as above, generally well-appearing, NAD EYES: PERRL, normal conjunctivae, no scleral icterus ENT: external ear and nose normal, poor dentition with missing teeth. NECK: trachea midline RESPIRATORY: clear to auscultation bilaterally, no crackles, rales or wheezes, normal respiratory effort CARDIOVASCULAR: regular rate and rhythm, S1 and 2 heard without murmurs, gallops or rubs, no JVD, no peripheral edema CHEST: +pacemaker GASTROINTESTINAL: soft MUSCULOSKELETAL: strength 5/5 in the lower extremities, head is normocephalic and atraumatic, paraspinal left tenderness to palpation around L3-4 SKIN: warm and dry, no rashes NEUROLOGIC: patellar and Achilles DTRs 2+ bilat. PERRL, no facial palsy, no dysarthria. Touch, pain and proprioception normal. CN 2-12 grossly intact, no s ensory deficit, normal cognition, normal speech, no tremor PSYCHIATRIC: alert cooperative and oriented to person, place and time. Euthymic mood, makes good eye contact, language grossly intact, recent and remote memory grossly intact. Results & Data Results & Data Vital Signs (Past 12 Hours) Vital Signs Temp Pulse Pulse Resp BP Pulse Ox Pulse Ox 08/16/22 14:11 63 08/16/22 16:15 36.4 C L 55 L 18 168/99 H 98 08/16/22 12:12 36.6 C 55 L 20 131/73 97 08/16/22 09:35 96 08/16/22 10:02 87 144/78 H O2 Del Method O2 Del Method 08/16/22 14:11 08/16/22 16:15 Room Air 08/16/22 12:12 Room Air 08/16/22 09:35 Room Air 08/16/22 10:02 Laboratory Results Short CBC 08/16/22 Range/Units 06:03 WBC 5.27 (4.8-10.8) K/ul Hgb 11.3 L (14.0-18.0) g/dl Hct 35.5 L (42.0-52.0) % Plt Count 296 (130-400) K/uL BMP 08/16/22 06:03 Sodium 137 Potassium 3.8 Chloride 105 Carbon Dioxide 28 BUN 17 Creatinine 1.26 Glucose 97 Calcium 9.9 Medications Administered Current Inpatient Medications Acetaminophen (Acetaminophen 325 Mg Tab) 650 mg PO Q4H PRN PRN Reason: Moderate Pain (Scale 4, 5, 6) Stop: 09/14/22 17:17 Last Admin: 08/15/22 22:00 Dose: 650 mg Acetaminophen (Acetaminophen 500 Mg Tab) 1,000 mg PO Q8 ZEENAT Stop: 09/15/22 09:29 Last Admin: 08/16/22 17:40 Dose: 1,000 mg Amiodarone HCl (Amiodarone 200 Mg Tab) 200 mg PO QAM PENDING SALE TO [facility] Stop: 09/15/22 08:59 Last Admin: 08/16/22 09:41 Dose: 200 mg Atorvastatin Calcium (Atorvastatin 40 Mg Tab) 80 mg PO HS PENDING SALE TO [facility] Stop: 09/14/22 20:59 Last Admin: 08/15/22 20:19 Dose: 80 mg Bisacodyl (Bisacodyl 5 Mg Tabec) 5 mg PO DAILY ZEENAT Stop: 09/14/22 17:17 Last Admin: 08/16/22 09:42 Dose: 5 mg Cyanocobalamin (Cyanocobalamin (B-12) 500 Mcg Tablet) 1,000 mcg PO DAILY PENDING SALE TO [facility] Stop: 09/15/22 08:59 Last Admin: 08/16/22 09:40 Dose: 1,000 mcg Dextrose (Dextrose 50% 50 Ml Syringe) 25 - 50 ml IV UD PRN; Protocol PRN Reason: Hypoglycemia Protocol Stop: 09/14/22 17:17 Gabapentin (Gabapentin 100 Mg Cap) 100 mg PO TID PENDING SALE TO [facility] Stop: 09/14/22 17:17 Last Admin: 08/16/22 13:43 Dose: 100 mg Glucagon (Glucagon For Inj 1 Mg Vial) 1 mg SQ UD PRN; Protocol PRN Reason: Hypoglycemia Protocol Stop: 09/14/22 17:17 Glucose (Glucose 10 Tab/Tube) 4 - 8 tab PO UD PRN; Protocol PRN Reason: Hypoglycemia Treatment Stop: 09/14/22 17:17 Glucose (Glucose 40% Gel 15 Gm Tube) 15 - 30 gm PO UD PRN; Protocol PRN Reason: Hypoglycemia Protocol Stop: 09/14/22 17:17 Hydromorphone HCl (Hydromorphone Inj 0.5 Mg/0.5 Ml Syr) 0.5 mg IV Q6H PRN PRN Reason: Pain Stop: 08/29/22 17:17 Dextrose/Sodium Chloride (D5w And Nss) 1,000 mls @ 60 mls/hr IV .[id number] ONE Stop: 08/16/22 20:39 Last Infusion: 08/16/22 04:59 Dose: 60 mls/hr Ceftriaxone Sodium 2,000 mg/ (Dextrose) 70 mls @ 100 mls/hr IV Q24H PENDING SALE TO [facility]; Protocol Stop: 09/27/22 08:59 Last Infusion: 08/16/22 11:44 Dose: Infused Vancomycin HCl 1,250 mg/ (Sodium Chloride) 275 mls @ 200 mls/hr IV Q18H PENDING SALE TO [facility] Stop: 09/27/22 21:59 Insulin Aspart (Insulin Aspart Per Unit Charge) 0 units SC [facility] PENDING SALE TO [facility] Stop: 09/29/22 16:29 Last Admin: 08/16/22 17:40 Dose: 4 units Isosorbide Mononitrate (Isosorbide [place] Extended Rel 30 Mg Tabcr) 30 mg PO QAM ZEENAT Stop: 09/15/22 08:59 Last Admin: 08/16/22 07:20 Dose: 30 mg Lidocaine (Lidocaine 5% 1 Patch) 1 patch TD Q24H PRN PRN Reason: Pain Stop: 09/14/22 17:25 Lorazepam (Lorazepam 2 Mg/1 Ml Vial) 1 mg IV Q10M PRN PRN Reason: seizures Stop: 09/15/22 06:10 Metoprolol Tartrate (Metoprolol Tartrate 50 Mg Tab) 50 mg PO BID PENDING S[facility] TO [facility] Stop: 09/14/22 20:59 Last Admin: 08/16/22 07:21 Dose: 50 mg Miscellaneous (Carbohydrates For Hypoglycemia ) 15 - 30 gm PO UD PRN PRN Reason: Hypoglycemia Protocol Stop: 09/14/22 17:17 Miscellaneous Information (Vancomycin Consult Active) 1 each N/A UD PRN PRN Reason: Consult Stop: 09/15/22 08:50 Ondansetron HCl (Ondansetron Inj 2 Mg/Ml 2 Ml Vial) 4 mg IV Q4H PRN PRN Reason: Nausea And Vomiting Stop: 09/14/22 17:17 Oxycodone HCl (Oxycodone Hcl Ir 5 Mg Tab (Immediate Release)) 5 mg PO Q4H PRN PRN Reason: Moderate Pain (Scale 4, 5, 6) Stop: 08/29/22 17:17 Last Admin: 08/16/22 11:30 Dose: 5 mg Polyethylene Glycol (Polyethylene (Miralax) 17 Gm Pack) 17 gm PO DAILY PENDING SALE TO [facility] Stop: 09/14/22 17:17 Last Admin: 08/16/22 09:42 Dose: 17 gm Potassium Chloride (Potassium Chloride 10 Meq Tabcr) 10 meq PO BID PENDING SALE TO [facility] Stop: 09/14/22 20:59 Last Admin: 08/16/22 09:41 Dose: 10 meq Sertraline HCl (Sertraline Hcl 100 Mg Tablet) 200 mg PO DAILY PENDING SALE TO [facility] Stop: 09/15/22 08:59 Last Admin: 08/16/22 09:42 Dose: 200 mg
[2022-08-16] MEDS: ATORVASTATIN 40 MG TAB PO SCH (20:14)
[2022-08-16] MEDS: LOSARTAN POTASSIUM 50 MG TAB PO SCH (20:38)
[2022-08-16] MEDS: VANCOMYCIN HCL 1,250 MG in SODIUM CHLORIDE 0.9% 250 ML IV SCH (21:02)
[2022-08-17] MEDS: oxyCODONE HCL IR 5 MG TAB (IMMEDIATE RELEASE) PO PRN ×2 (01:41→13:08)
[2022-08-17] MEDS: ACETAMINOPHEN 500 MG TAB PO SCH ×3 (05:02→20:39)
[2022-08-17 07:23] LABS: Hematocrit (blood only) 33.8 % (42.0-52.0); Hemoglobin 10.8 g/dl (14.0-18.0); Mean Corpuscular Hemoglobin 30.8 pg (25.0-34.0); Mean Corpuscular Volume 96.3 fL (80.0-100.0); Mean Platelet Volume 9.9 fL (9.4-12.4); Platelet Count 268 K/uL (130-400); RDW Coefficient of Variation 13.4 % (11.5-14.5); RDW Standard Deviation 47.9 fL (36.4-46.3); Red Blood Count 3.51 M/uL (4.70-6.10)
[2022-08-17 07:37] LABS: BUN Creatinine Ratio 13.6 (10-20); C Reactive Protein 0.77 mg/dl (0-0.5); Calcium 9.6 mg/dl (8.6-10.3); Creatinine Clr Calc Pharmacy 59.7 ml/min; Est GFR (African American) 64.9 ml/min
[2022-08-17 07:45] LABS: INR 1.2 (0.9-1.1); Prothrombin Time 13.2 Seconds (9.0-12.0)
--- NOTE | 2022-08-17 07:50 | Hospitalist Progress Note ---
Date of Service August 17, 2022 Assessment & Plan (1) Closed L3 vertebral fracture: Plan: Trauma in May with subsequent L3 fracture, persistent pain and now with urinary incontinence. Had a UTI but this has long since been treated and no further evidence of infxn on repeat UA. CT reveals progressive erosive change and paravertebral edema at the L3-L4 disc space level with a small acute fracture at the left side of the L3 inferior endplate. No significant loss of height at this time. The progressive erosive change is nonspecific but concerning for a discitis/osteomyelitis. Pathologic lesions are considered less likely. -holding Plavix, ASA in preparation for IR-guided aspiration for culture -although this is not ideal in a patient with h/o CABG, spinal hematoma and paralysis may result with planned procedure on Friday. -holding warfarin-vit K was given, however, procedure couldn't be performed until Fri as INR still too high. -Pain management ordered, bowel regimen -broad abx started including vancomycin and Rocephin -consult infectious disease -PT/OT consults -ortho spine also following his progress in the hospital. (2) Discitis of lumbar region: Plan: Vanc/Rocephin, supportive care, ID consult. Blood cultures negative. Possible direct inoculation from trauma? PT with poor dentition--possible source? Of note patient lives in a trailer on 1 [address] and is retired. He cares for chickens, dogs, guinea pigs, and has two canaries. Per [facility] inpatient records review, he had a syncopal episode at the time of the fall because of a medication side effect for one that makes him drowsy/treats insomnia. (3) Tremor: Plan: resolved, uncertain etiology. Neuro saw him this am and recommended an EEG although seizure was felt to be less likely given no post-ictal weakness or pattern of movement as demonstrated by the patient. Could have been a tremor in reposne to pain. If EEG is negative, he doesn't require further workup at this time. EEG pending. (4) CAD (coronary artery disease): Plan: CABG x 4 in 2006, holding ASA and plavix for now in preparation for IR procedure Friday. Cont medical management with atorvastatin, imdur, losartan (5) Paroxysmal A-fib: Plan: warfarin held, currently paced rhythm on telemetry. Cont Lopressor BID and amiodarone per home regimen. (6) HTN (hypertension): Plan: Initially hypotensive so antihypertension drugs were held. Added back HCTZ 12.5 daily and losartan 100 daily and currently at goal (7) DM type 2 (diabetes mellitus, type 2): Plan: -Last A1c was 5.8, recheck with a.m. labs -ISS with Accu-Cheks ACHS, holding metformin -inpatient BSG at goal (8) Chronic kidney disease (CKD), stage III (moderate): Plan: chronic, stable. Cont to monitor DVT PPx: - scds pending upcoming procedure. CODE: Conditional code, no CPR, intubation okay Dispo: pending IR procedure on Friday and PT/OT recommendations. I spent a total of60 minutes coordinating, documenting, and providing care for this patient excluding time spent in the performance of separately billed services Mckayla Sanchez DO [facility] Hospitalist Admission and Anticipated Discharge Date Admission Date: August 15, 2022 Subjective 77 yo M presents for persistent lower back pain since a fall in May in his trailer. Pain present after therapy session today however this morning he reports his pain was improved Denies any arielle urinary incontinence but reports that he has some "leakage as if "I did not shake enough Otherwise tolerating p.o. and doing well Review of Systems Review of Systems: All systems were reviewed and negative except as indiated on HPI above. Physical Exam Physical Exam: CONSTITUTIONAL: WNWD, vitals as above, generally well-appearing, NAD EYES: PERRL, normal conjunctivae, no scleral icterus ENT: external ear and nose normal, poor dentition with missing teeth. NECK: trachea midline RESPIRATORY: clear to auscultation bilaterally, no crackles, rales or wheezes, normal respiratory effort CARDIOVASCULAR: regular rate and rhythm, S1 and 2 heard without murmurs, gallops or rubs, no JVD, no peripheral edema CHEST: +pacemaker GASTROINTESTINAL: soft MUSCULOSKELETAL: strength 5/5 in the lower extremities, head is normocephalic and atraumatic SKIN: warm and dry, no rashes NEUROLOGIC: no facial palsy, no dysarthria. CN 2-12 grossly intact, no sensory deficit, normal cognition, normal speech, no tremor PSYCHIATRIC: alert cooperative and oriented to person, place and time. Euthymi c mood, makes good eye contact, language grossly intact, recent and remote memory grossly intact. Results & Data Results & Data Vital Signs (Past 12 Hours) Vital Signs Temp Pulse Pulse Resp BP Pulse Ox O2 Del Method 08/17/22 07:19 58 L 08/17/22 03:05 36.4 C L 55 L 16 159/92 H 96 Room Air 08/16/22 22:47 36.4 C L 57 L 16 135/75 95 Room Air 08/16/22 22:03 61 Laboratory Results Short CBC 08/17/22 Range/Units 06:44 WBC 5.80 (4.8-10.8) K/ul Hgb 10.8 L (14.0-18.0) g/dl Hct 33.8 L (42.0-52.0) % Plt Count 268 (130-400) K/uL BMP 08/17/22 06:44 Sodium 136 Potassium 4.0 Chloride 105 Carbon Dioxide 26 BUN 17 Creatinine 1.25 Glucose 93 Calcium 9.6 Medications Administered Current Inpatient Medications Acetaminophen (Acetaminophen 325 Mg Tab) 650 mg PO Q4H PRN PRN Reason: Moderate Pain (Scale 4, 5, 6) Stop: 09/14/22 17:17 Last Admin: 08/15/22 22:00 Dose: 650 mg Acetaminophen (Acetaminophen 500 Mg Tab) 1,000 mg PO Q8 ZEENAT Stop: 09/15/22 09:29 Last Admin: 08/17/22 05:02 Dose: 1,000 mg Amiodarone HCl (Amiodarone 200 Mg Tab) 200 mg PO QAM ZEENAT Stop: 09/15/22 08:59 Last Admin: 08/16/22 09:41 Dose: 200 mg Atorvastatin Calcium (Atorvastatin 40 Mg Tab) 80 mg PO HS ZEENAT Stop: 09/14/22 20:59 Last Admin: 08/16/22 20:14 Dose: 80 mg Bisacodyl (Bisacodyl 5 Mg Tabec) 5 mg PO DAILY ZEENAT Stop: 09/14/22 17:17 Last Admin: 08/16/22 09:42 Dose: 5 mg Cyanocobalamin (Cyanocobalamin (B-12) 500 Mcg Tablet) 1,000 mcg PO DAILY ZEENAT Stop: 09/15/22 08:59 Last Admin: 08/16/22 09:40 Dose: 1,000 mcg Dextrose (Dextrose 50% 50 Ml Syringe) 25 - 50 ml IV UD PRN; Protocol PRN Reason: Hypoglycemia Protocol Stop: 09/14/22 17:17 Gabapentin (Gabapentin 100 Mg Cap) 100 mg PO TID [facility] Stop: 09/14/22 17:17 Last Admin: 08/16/22 20:12 Dose: 100 mg Glucagon (Glucagon For Inj 1 Mg Vial) 1 mg SQ UD PRN; Protocol PRN Reason: Hypoglycemia Protocol Stop: 09/14/22 17:17 Glucose (Glucose 10 Tab/Tube) 4 - 8 tab PO UD PRN; Protocol PRN Reason: Hypoglycemia Treatment Stop: 09/14/22 17:17 Glucose (Glucose 40% Gel 15 Gm Tube) 15 - 30 gm PO UD PRN; Protocol PRN Reason: Hypoglycemia Protocol Stop: 09/14/22 17:17 Hydrochlorothiazide (Hydrochlorothiazide 25 Mg Tab) 12.5 mg PO QAM [facility] Stop: 09/16/22 08:59 Ceftriaxone Sodium 2,000 mg/ (Dextrose) 70 mls @ 100 mls/hr IV Q24H [facility]; Protocol Stop: 09/27/22 08:59 Last Infusion: 08/16/22 11:44 Dose: Infused Vancomycin HCl 1,250 mg/ (Sodium Chloride) 275 mls @ 200 mls/hr IV Q18H [facility] Stop: 09/27/22 21:59 Last Infusion: 08/16/22 22:25 Dose: Infused Insulin Aspart (Insulin Aspart Per Unit Charge) 0 units SC ACHS [facility] Stop: 09/29/22 16:29 Last Admin: 08/16/22 20:19 Dose: Not Given Isosorbide Mononitrate (Isosorbide [place] Extended Rel 30 Mg Tabcr) 30 mg PO QAM [facility] Stop: 09/15/22 08:59 Last Admin: 08/16/22 07:20 Dose: 30 mg Lidocaine (Lidocaine 5% 1 Patch) 1 patch TD Q24H PRN PRN Reason: Pain Stop: 09/14/22 17:25 Lorazepam (Lorazepam 2 Mg/1 Ml Vial) 1 mg IV Q10M PRN PRN Reason: seizures Stop: 09/15/22 06:10 Losartan Potassium (Losartan Potassium 50 Mg Tab) 100 mg PO HS [facility] Stop: 09/15/22 20:59 Last Admin: 08/16/22 20:38 Dose: 100 mg Metoprolol Tartrate (Metoprolol Tartrate 50 Mg Tab) 50 mg PO BID [facility] Stop: 09/14/22 20:59 Last Admin: 08/16/22 20:13 Dose: 50 mg Miscellaneous (Carbohydrates For Hypoglycemia ) 15 - 30 gm PO UD PRN PRN Reason: Hypoglycemia Protocol Stop: 09/14/22 17:17 Miscellaneous Information (Vancomycin Consult Active) 1 each N/A UD PRN PRN Reason: Consult Stop: 09/15/22 08:50 Ondansetron HCl (Ondansetron Inj 2 Mg/Ml 2 Ml Vial) 4 mg IV Q4H PRN PRN Reason: Nausea And Vomiting Stop: 09/14/22 17:17 Oxycodone HCl (Oxycodone Hcl Ir 5 Mg Tab (Immediate Release)) 5 mg PO Q4H PRN PRN Reason: Breakthrough Pain Stop: 08/29/22 17:17 Last Admin: 08/17/22 01:41 Dose: 5 mg Polyethylene Glycol (Polyethylene (Miralax) 17 Gm Pack) 17 gm PO DAILY ZEENAT Stop: 09/14/22 17:17 Last Admin: 08/16/22 09:42 Dose: 17 gm Potassium Chloride (Potassium Chloride 10 Meq Tabcr) 10 meq PO BID ZEENAT Stop: 09/14/22 20:59 Last Admin: 08/16/22 20:12 Dose: 10 meq Sertraline HCl (Sertraline Hcl 100 Mg Tablet) 200 mg PO DAILY ZEENAT Stop: 09/15/22 08:59 Last Admin: 08/16/22 09:42 Dose: 200 mg
[2022-08-17] MEDS: METOPROLOL TARTRATE 50 MG TAB PO SCH ×2 (07:52→19:15)
[2022-08-17] MEDS: POLYETHYLENE (MIRALAX) 17 GM PACK PO SCH (07:52)
[2022-08-17] MEDS: hydroCHLOROthiazide 25 MG TAB PO SCH (07:52)
[2022-08-17] MEDS: GABAPENTIN 100 MG CAP PO SCH ×3 (07:53→19:15)
[2022-08-17] MEDS: POTASSIUM CHLORIDE 10 MEQ TABCR PO SCH ×2 (07:53→19:19)
[2022-08-17] MEDS: ISOSORBIDE MONO EXTENDED REL 30 MG TABCR PO SCH (07:54)
[2022-08-17] MEDS: AMIODARONE 200 MG TAB PO SCH (07:54)
[2022-08-17] MEDS: bisacodyL 5 MG TABEC PO SCH (07:54)
[2022-08-17] MEDS: CYANOCOBALAMIN (B-12) 500 MCG TABLET PO SCH (07:54)
[2022-08-17] MEDS: SERTRALINE HCL 100 MG TABLET PO SCH (07:55)
[2022-08-17] MEDS: cefTRIAXone SODIUM 2,000 MG in DEXTROSE 5% 50 ML IV SCH (08:01)
[2022-08-17] MEDS: INSULIN ASPART PER UNIT CHARGE SC SCH ×4 (08:09→20:31)
[2022-08-17] MEDS ORDERED: oxyCODONE HCL IR 5 MG TAB (IMMEDIATE RELEASE) PO STA (14:09)
[2022-08-17] MEDS: VANCOMYCIN HCL 1,250 MG in SODIUM CHLORIDE 0.9% 250 ML IV SCH (15:45)
[2022-08-17] MEDS: ATORVASTATIN 40 MG TAB PO SCH (19:13)
[2022-08-17] MEDS: LOSARTAN POTASSIUM 50 MG TAB PO SCH (19:15)
[2022-08-18] MEDS: oxyCODONE HCL IR 5 MG TAB (IMMEDIATE RELEASE) PO PRN ×3 (02:28→13:51)
[2022-08-18] MEDS: ACETAMINOPHEN 500 MG TAB PO SCH ×3 (06:11→21:04)
[2022-08-18] MEDS: GABAPENTIN 100 MG CAP PO SCH ×3 (08:04→20:41)
[2022-08-18] MEDS: INSULIN ASPART PER UNIT CHARGE SC SCH ×4 (08:04→20:46)
[2022-08-18] MEDS: ISOSORBIDE MONO EXTENDED REL 30 MG TABCR PO SCH (08:05)
[2022-08-18] MEDS: SERTRALINE HCL 100 MG TABLET PO SCH (08:05)
[2022-08-18] MEDS: AMIODARONE 200 MG TAB PO SCH (08:05)
[2022-08-18] MEDS: hydroCHLOROthiazide 25 MG TAB PO SCH (08:06)
[2022-08-18] MEDS: METOPROLOL TARTRATE 50 MG TAB PO SCH ×3 (08:06→21:34)
[2022-08-18] MEDS: cefTRIAXone SODIUM 2,000 MG in DEXTROSE 5% 50 ML IV SCH (08:07)
[2022-08-18] MEDS: CYANOCOBALAMIN (B-12) 500 MCG TABLET PO SCH (08:07)
[2022-08-18] MEDS: bisacodyL 5 MG TABEC PO SCH (08:10)
[2022-08-18] MEDS: POLYETHYLENE (MIRALAX) 17 GM PACK PO SCH ×3 (08:10→20:41)
[2022-08-18] MEDS: POTASSIUM CHLORIDE 10 MEQ TABCR PO SCH ×2 (08:10→20:45)
[2022-08-18] MEDS: VANCOMYCIN HCL 1,250 MG in SODIUM CHLORIDE 0.9% 250 ML IV SCH (09:41)
--- NOTE | 2022-08-18 10:06 | Pharmacy Report ---
Pharmacy PK ABX Note - Date of Service August 18, 2022 - Assessment and Plan Assessment 77 year old M receiving empiric vancomycin and ceftriaxone for concern of possible discitis/osteomyelitis in context of lumbar spinal fracture. Pertinent microbiologic data includes: blood cultures x 2 (08/15) NGTD. Patient afebrile with no overt leukocytosis. Pertinent PMH includes T2DM and CKD (SCr: 1.25 mg/dL 08/17/22). ID consult pending. Day # 3 of antimicrobial therapy. Plan Vancomycin * Random level this morning does predict regimen to achieve target AUC range, however it is on the lower end. Given the indication of discitis/osteo, will increase the regimen to target the higher end of goal. * Increase Maintenance dose to: 1000 mg IV every 12 hours * Regimen is predicted to achieve target AUC/ANG of 400-600 mg/L.hr * Random level ordered for: 08/20/22 Ceftriaxone * 2 g IV q24h - appropriate, no change Pharmacy will continue to follow and will adjust dose/frequency as necessary. Thank you. Pharmacy has transitioned to AUC monitoring for vancomycin. AUC/ANG is the preferred PK/PD target and is associated with decreased risk of nephrotoxicity compared to traditional trough targets.
[2022-08-18] MEDS ORDERED: GLYCERIN ADULT 12 SUPP/BOX SUPP PR ONE (11:23)
--- NOTE | 2022-08-18 13:36 | Hospitalist Progress Note ---
Date of Service August 18, 2022 Assessment & Plan (1) Closed L3 vertebral fracture: Plan: Trauma in May with subsequent L3 fracture, persistent pain and now with urinary incontinence. Had a UTI but this has long since been treated and no further evidence of infxn on repeat UA. CT reveals progressive erosive change and paravertebral edema at the L3-L4 disc space level with a small acute fracture at the left side of the L3 inferior endplate. No significant loss of height at this time. The progressive erosive change is nonspecific but concerning for a discitis/osteomyelitis. Pathologic lesions are considered less likely. -holding Plavix, ASA in preparation for IR-guided aspiration for culture -although this is not ideal in a patient with h/o CABG, spinal hematoma and paralysis may result with planned procedure on Friday. -holding warfarin-vit K was given, however, procedure couldn't be performed until Fri as INR still too high. -Pain management ordered, bowel regimen -broad abx started including vancomycin and Rocephin -consult infectious disease -PT/OT consults -ortho spine also following his progress in the hospital. (2) Discitis of lumbar region: Plan: Vanc/Rocephin, supportive care, ID consult. Blood cultures negative. Possible direct inoculation from trauma? PT with poor dentition--possible source? Of note patient lives in a trailer on 1 [address] and is retired. He cares for chickens, dogs, guinea pigs, and has two canaries. Per [facility] inpatient records review, he had a syncopal episode at the time of the fall because of a medication side effect for one that makes him drowsy/treats insomnia. (3) Tremor: Plan: resolved, uncertain etiology. Neuro saw him this am and recommended an EEG although seizure was felt to be less likely given no post-ictal weakness or pattern of movement as demonstrated by the patient. Could have been a tremor in reposne to pain. If EEG is negative, he doesn't require further workup at this time. EEG pending. (4) CAD (coronary artery disease): Plan: CABG x 4 in 2006, holding ASA and plavix for now in preparation for IR procedure Friday. Cont medical management with atorvastatin, imdur, losartan (5) Paroxysmal A-fib: Plan: warfarin held, currently paced rhythm on telemetry. Cont Lopressor BID and amiodarone per home regimen. (6) HTN (hypertension): Plan: Initially hypotensive so antihypertension drugs were held. Added back HCTZ 12.5 daily and losartan 100 daily and currently at goal (7) DM type 2 (diabetes mellitus, type 2): Plan: -Last A1c was 5.8, recheck with a.m. labs -ISS with Accu-Cheks ACHS, holding metformin -inpatient BSG at goal (8) Chronic kidney disease (CKD), stage III (moderate): Plan: chronic, stable. Cont to monitor DVT PPx: - scds pending upcoming procedure. CODE: Conditional code, no CPR, intubation okay Dispo: pending IR procedure on Friday and PT/OT recommendations. I spent a total of60 minutes coordinating, documenting, and providing care for this patient excluding time spent in the performance of separately billed services DO [facility] Hospitalist Admission and Anticipated Discharge Date Admission Date: August 15, 2022 Subjective 77 yo M presents for persistent lower back pain since a fall in May in his trailer. pain slightly worse overnight constipated despite miralax pain is improved when he is lying flat. hurts to sit up in bed but he was out of bed this morning to chair for breakfast. Review of Systems Review of Systems: All systems were reviewed and negative except as indiated on HPI above. Physical Exam Physical Exam: CONSTITUTIONAL: WNWD, vitals as above, generally well-appearing, NAD EYES: normal conjunctivae, no scleral icterus ENT: external ear and nose normal, poor dentition with missing teeth. NECK: trachea midline RESPIRATORY: clear to auscultation bilaterally, no crackles, rales or wheezes, normal respiratory effort CARDIOVASCULAR: regular rate and rhythm, S1 and 2 heard without murmurs, gallops or rubs, no JVD, no peripheral edema CHEST: +pacemaker GASTROINTESTINAL: soft MUSCULOSKELETAL: strength 5/5 in the lower extremities, head is normocephalic and atraumatic SKIN: warm and dry, no rashes NEUROLOGIC: no facial palsy, no dysarthria. CN 2-12 grossly intact, no sensory deficit, normal cognition, normal speech, no tremor PSYCHIATRIC: alert cooperative and oriented to person, place and time. Euthymic mood, makes good eye contact, language grossly intact, recent and remote memory grossly intact. Results & Data Results & Data Vital Signs (Past 12 Hours) Vital Signs Temp Pulse Pulse Resp BP Pulse Ox O2 Del Method 08/18/22 11:45 59 L 18 168/95 H 94 Room Air 08/18/22 07:38 61 08/18/22 03:30 36.8 C 56 L 18 166/89 H 95 Room Air Medications Administered Current Inpatient Medications Acetaminophen (Acetaminophen 325 Mg Tab) 650 mg PO Q4H PRN PRN Reason: Moderate Pain (Scale 4, 5, 6) Stop: 09/14/22 17:17 Last Admin: 08/15/22 22:00 Dose: 650 mg Acetaminophen (Acetaminophen 500 Mg Tab) 1,000 mg PO Q8 ZEENAT Stop: 09/15/22 09:29 Last Admin: 08/18/22 06:11 Dose: 1,000 mg Amiodarone HCl (Amiodarone 200 Mg Tab) 200 mg PO QAM [facility]EENAT Stop: 09/15/22 08:59 Last Admin: 08/18/22 08:05 Dose: 200 mg Atorvastatin Calcium (Atorvastatin 40 Mg Tab) 80 mg PO HS ZEENAT Stop: 09/14/22 20:59 Last Admin: 08/17/22 19:13 Dose: 80 mg Bisacodyl (Bisacodyl 5 Mg Tabec) 5 mg PO DAILY ZEENAT Stop: 09/14/22 17:17 Last Admin: 08/18/22 08:10 Dose: 5 mg Cyanocobalamin (Cyanocobalamin (B-12) 500 Mcg Tablet) 1,000 mcg PO DAILY ZEENAT Stop: 09/15/22 08:59 Last Admin: 08/18/22 08:07 Dose: 1,000 mcg Dextrose (Dextrose 50% 50 Ml Syringe) 25 - 50 ml IV UD PRN; Protocol PRN Reason: Hypoglycemia Protocol Stop: 09/14/22 17:17 Gabapentin (Gabapentin 100 Mg Cap) 100 mg PO TID ZEENAT Stop: 09/14/22 17:17 Last Admin: 08/18/22 08:04 Dose: 100 mg Glucagon (Glucagon For Inj 1 Mg Vial) 1 mg SQ UD PRN; Protocol PRN Reason: Hypoglycemia Protocol Stop: 09/14/22 17:17 Glucose (Glucose 10 Tab/Tube) 4 - 8 tab PO UD PRN; Protocol PRN Reason: Hypoglycemia Treatment Stop: 09/14/22 17:17 Glucose (Glucose 40% Gel 15 Gm Tube) 15 - 30 gm PO UD PRN; Protocol PRN Reason: Hypoglycemia Protocol Stop: 09/14/22 17:17 Hydrochlorothiazide (Hydrochlorothiazide 25 Mg Tab) 12.5 mg PO QAM [facility] Stop: 09/16/22 08:59 Last Admin: 08/18/22 08:06 Dose: 12.5 mg Ceftriaxone Sodium 2,000 mg/ (Dextrose) 70 mls @ 100 mls/hr IV Q24H [facility]; Protocol Stop: 09/27/22 08:59 Last Infusion: 08/18/22 09:00 Dose: Infused Vancomycin HCl 1,000 mg/ (Sodium Chloride) 270 mls @ 200 mls/hr IV Q12H [facility]; Protocol Stop: 09/27/22 21:59 Insulin Aspart (Insulin Aspart Per Unit Charge) 0 units SC [facility] Stop: 09/29/22 16:29 Last Admin: 08/18/22 11:58 Dose: 2 units Isosorbide Mononitrate (Isosorbide [place] Extended Rel 30 Mg Tabcr) [facility] [place] Stop: 09/15/22 08:59 Last Admin: 08/18/22 08:05 Dose: 30 mg Lidocaine (Lidocaine 5% 1 Patch) 1 patch TD Q24H PRN PRN Reason: Pain Stop: 09/14/22 17:25 Lorazepam (Lorazepam 2 Mg/1 Ml Vial) 1 mg IV Q10M PRN PRN Reason: seizures Stop: 09/15/22 06:10 Losartan Potassium (Losartan Potassium 50 Mg Tab) 100 mg PO HS [facility] Stop: 09/15/22 20:59 Last Admin: 08/17/22 19:15 Dose: 100 mg Metoprolol Tartrate (Metoprolol Tartrate 50 Mg Tab) 50 mg PO BID [facility] Stop: 09/14/22 20:59 Last Admin: 08/18/22 08:06 Dose: 50 mg Miscellaneous (Carbohydrates For Hypoglycemia ) 15 - 30 gm PO UD PRN PRN Reason: Hypoglycemia Protocol Stop: 09/14/22 17:17 Miscellaneous Information (Vancomycin Consult Active) 1 each N/A UD PRN PRN Reason: Consult Stop: 09/15/22 08:50 Ondansetron HCl (Ondansetron Inj 2 Mg/Ml 2 Ml Vial) 4 mg IV Q4H PRN PRN Reason: Nausea And Vomiting Stop: 09/14/22 17:17 Oxycodone HCl (Oxycodone Hcl Ir 5 Mg Tab (Immediate Release)) 5 - 10 mg PO Q4H PRN PRN Reason: Breakthrough Pain Stop: 08/29/22 17:17 Polyethylene Glycol (Polyethylene (Miralax) 17 Gm Pack) 17 gm PO TID ZEENAT Stop: 09/17/22 13:59 Potassium Chloride (Potassium Chloride 10 Meq Tabcr) 10 meq PO BID ZEENAT Stop: 09/14/22 20:59 Last Admin: 08/18/22 08:10 Dose: 10 meq Sertraline HCl (Sertraline Hcl 100 Mg Tablet) 200 mg PO DAILY ZEENAT Stop: 09/15/22 08:59 Last Admin: 08/18/22 08:05 Dose: 200 mg
[2022-08-18] MEDS: ATORVASTATIN 40 MG TAB PO SCH (20:41)
[2022-08-18] MEDS: LOSARTAN POTASSIUM 50 MG TAB PO SCH (20:41)
[2022-08-18] MEDS: VANCOMYCIN HCL 1,000 MG in SODIUM CHLORIDE 0.9% 250 ML IV SCH (21:04)
[2022-08-19] MEDS: ACETAMINOPHEN 500 MG TAB PO SCH ×3 (05:31→20:29)
[2022-08-19] MEDS ORDERED: INSULIN ASPART PER UNIT CHARGE SC SCH (06:00)
[2022-08-19 07:03] LABS: Hematocrit (blood only) 34.6 % (42.0-52.0); Hemoglobin 11.1 g/dl (14.0-18.0); Mean Corpuscular Hemoglobin 30.8 pg (25.0-34.0); Mean Corpuscular Hgb Conc 32.1 g/dL (32.0-36.0); Mean Corpuscular Volume 96.1 fL (80.0-100.0); Mean Platelet Volume 10.1 fL (9.4-12.4); Platelet Count 285 K/uL (130-400); RDW Coefficient of Variation 13.7 % (11.5-14.5); RDW Standard Deviation 48.4 fL (36.4-46.3); White Blood Count 5.64 K/ul (4.8-10.8)
[2022-08-19 07:19] LABS: Creatinine Clr Calc Pharmacy 62.4 ml/min; Est GFR (African American) 68.1 ml/min; Est GFR (Non-African American) 58.8 ml/min; Potassium 4.1 mmol/L (3.5-5.1)
[2022-08-19 07:33] LABS: INR 1.1 (0.9-1.1); Prothrombin Time 12.2 Seconds (9.0-12.0)
[2022-08-19] MEDS: ISOSORBIDE MONO EXTENDED REL 30 MG TABCR PO SCH (09:31)
[2022-08-19] MEDS: CYANOCOBALAMIN (B-12) 500 MCG TABLET PO SCH (09:31)
[2022-08-19] MEDS: GABAPENTIN 100 MG CAP PO SCH ×3 (09:31→20:26)
[2022-08-19] MEDS: hydroCHLOROthiazide 25 MG TAB PO SCH (09:32)
[2022-08-19] MEDS: AMIODARONE 200 MG TAB PO SCH (09:32)
[2022-08-19] MEDS: SERTRALINE HCL 100 MG TABLET PO SCH (09:32)
[2022-08-19] MEDS: oxyCODONE HCL IR 5 MG TAB (IMMEDIATE RELEASE) PO PRN ×2 (09:35→22:47)
[2022-08-19] MEDS: POTASSIUM CHLORIDE 10 MEQ TABCR PO SCH ×2 (09:36→20:35)
[2022-08-19] MEDS: bisacodyL 5 MG TABEC PO SCH (09:38)
[2022-08-19] MEDS: cefTRIAXone SODIUM 2,000 MG in DEXTROSE 5% 50 ML IV SCH (09:45)
[2022-08-19] MEDS: fentaNYL citrate PF 100 MCG/2 ML VIAL ONE ×2 (10:03→20:47)
[2022-08-19] MEDS: VANCOMYCIN HCL 1,000 MG in SODIUM CHLORIDE 0.9% 250 ML IV SCH ×2 (10:17→22:42)
[2022-08-19] MEDS: METOPROLOL TARTRATE 50 MG TAB PO SCH ×2 (10:18→20:28)
[2022-08-19] MEDS: POLYETHYLENE (MIRALAX) 17 GM PACK PO SCH ×3 (10:18→20:28)
[2022-08-19] MEDS ORDERED: Nursing to Pharmacy Communication SCH (10:45)
--- NOTE | 2022-08-19 11:15 | Electroencephalogram ---
EEG Procedure Note Date of Service August 19, 2022 Start / End Times Start Time: 714 End Time: 734 Referring Physician Mckayla Sanchez DO History 77-year-old with history of abnormal involuntary movements. Home Medication List Medication Instructions Recorded Confirmed Type amiodarone 200 mg tablet 200 mg PO QAM 08/15/22 08/15/22 History atorvastatin 80 mg tablet 80 mg PO HS 08/15/22 08/15/22 History clopidogrel 75 mg tablet 75 mg PO QAM 08/15/22 08/15/22 History cyanocobalamin (vitamin B-12) 1,000 mcg PO DAILY 08/15/22 08/15/22 History 1,000 mcg tablet (Vitamin B-12) gabapentin 100 mg capsule 100 mg PO TID 08/15/22 08/15/22 History hydrochlorothiazide 12.5 mg capsule 12.5 mg PO QAM 08/15/22 08/15/22 History isosorbide mononitrate 30 mg 30 mg PO QAM 08/15/22 08/15/22 History tablet,extended release 24 hr lidocaine 4 % topical patch 1 patch topical QAM PRN Pain 08/15/22 08/15/22 History losartan 100 mg tablet 100 mg PO QAM 08/15/22 08/15/22 History metformin 500 mg tablet,extended 500 mg PO BID 08/15/22 08/15/22 History release 24 hr metoprolol tartrate 50 mg tablet 50 mg PO BID 08/15/22 08/15/22 History nitroglycerin 0.4 mg sublingual 0.4 mg sublingual DIRECTED PRN 08/15/22 08/15/22 History tablet Chest Pain potassium chloride 10 mEq 10 meq PO BID 08/15/22 08/15/22 History tablet,extended release sertraline 100 mg tablet 200 mg PO DAILY 08/15/22 08/15/22 History sildenafil (pulm.hypertension) 20 20 mg PO DAILY PRN Sexual Activity 08/15/22 08/15/22 History mg tablet tizanidine 4 mg tablet 2 - 4 mg PO BID PRN MUSCLE SPASMS 08/15/22 08/15/22 History warfarin 2 mg tablet 2 mg PO HS 08/15/22 08/15/22 History Inpatient Medication List Acetaminophen (Acetaminophen 325 Mg Tab) 650 mg PO Q4H PRN PRN Reason: Moderate Pain (Scale 4, 5, 6) Stop: 09/14/22 17:17 Last Admin: 08/15/22 22:00 Dose: 650 mg Documented By: SADI Acetaminophen (Acetaminophen 500 Mg Tab) 1,000 mg PO Q8 ZEENAT Stop: 09/15/22 09:29 Last Admin: 08/19/22 05:31 Dose: 1,000 mg Documented By: SADI(2) Admin: 08/18/22 21:04 Dose: 1,000 mg Documented By: SADI(2) Admin: 08/18/22 13:48 Dose: 1,000 mg Documented By: Admin: 08/18/22 06:11 Dose: 1,000 mg Documented By: Admin: 08/17/22 20:39 Dose: 1,000 mg Documented By: Admin: 08/17/22 13:09 Dose: 1,000 mg Documented By: Admin: 08/17/22 05:02 Dose: 1,000 mg Documented By: SADI(2) Admin: 08/16/22 22:28 Dose: 1,000 mg Documented By: SADI(2) Admin: 08/16/22 17:40 Dose: 1,000 mg Documented By: Admin: 08/16/22 09:50 Dose: 1,000 mg Documented By: ADY Amiodarone HCl (Amiodarone 200 Mg Tab) 200 mg PO QAM [facility] Stop: 09/15/22 08:59 Last Admin: 08/19/22 09:32 Dose: 200 mg Documented By: Admin: 08/18/22 08:05 Dose: 200 mg Documented By: Admin: 08/17/22 07:54 Dose: 200 mg Documented By: Admin: 08/16/22 09:41 Dose: 200 mg Documented By: ADY Atorvastatin Calcium (Atorvastatin 40 Mg Tab) 80 mg PO HS [facility] Stop: 09/14/22 20:59 Last Admin: 08/18/22 20:41 Dose: 80 mg Documented By: SADI(2) Admin: 08/17/22 19:13 Dose: 80 mg Documented By: Admin: 08/16/22 20:14 Dose: 80 mg Documented By: SADI(2) Admin: 08/15/22 20:19 Dose: 80 mg Documented By: SADI Bisacodyl (Bisacodyl 5 Mg Tabec) 5 mg PO DAILY ZEENAT Stop: 09/14/22 17:17 Last Admin: 08/19/22 09:38 Dose: 5 mg Documented By: Admin: 08/18/22 08:10 Dose: 5 mg Documented By: Admin: 08/17/22 07:54 Dose: 5 mg Documented By: Admin: 08/16/22 09:42 Dose: 5 mg Documented By: Admin: 08/15/22 18:21 Dose: 5 mg Documented By: CHETAN Cyanocobalamin (Cyanocobalamin (B-12) 500 Mcg Tablet) 1,000 mcg PO DAILY ZEENAT Stop: 09/15/22 08:59 Last Admin: 08/19/22 09:31 Dose: 1,000 mcg Documented By: Admin: 08/18/22 08:07 Dose: 1,000 mcg Documented By: Admin: 08/17/22 07:54 Dose: 1,000 mcg Documented By: Admin: 08/16/22 09:40 Dose: 1,000 mcg Documented By: ADY Gabapentin (Gabapentin 100 Mg Cap) 100 mg PO TID ZEENAT Stop: 09/14/22 17:17 Last Admin: 08/19/22 09:31 Dose: 100 mg Documented By: Admin: 08/18/22 20:41 Dose: 100 mg Documented By: SADI(2) Admin: 08/18/22 13:48 Dose: 100 mg Documented By: Admin: 08/18/22 08:04 Dose: 100 mg Documented By: Admin: 08/17/22 19:15 Dose: 100 mg Documented By: Admin: 08/17/22 13:10 Dose: 100 mg Documented By: Admin: 08/17/22 07:53 Dose: 100 mg Documented By: Admin: 08/16/22 20:12 Dose: 100 mg Documented By: SADI(2) Admin: 08/16/22 13:43 Dose: 100 mg Documented By: Admin: 08/16/22 09:41 Dose: 100 mg Documented By: Admin: 08/15/22 20:19 Dose: 100 mg Documented By: Admin: 08/15/22 18:19 Dose: 100 mg Documented By: CHETAN Hydrochlorothiazide (Hydrochlorothiazide 25 Mg Tab) 12.5 mg PO QAM [facility] Stop: 09/16/22 08:59 Last Admin: 08/19/22 09:32 Dose: 12.5 mg Documented By: Admin: 08/18/22 08:06 Dose: 12.5 mg Documented By: Admin: 08/17/22 07:52 Dose: 12.5 mg Documented By: SARAH Ceftriaxone Sodium 2,000 mg/ (Dextrose) 70 mls @ 100 mls/hr IV Q24H ZEENAT; Protocol Stop: 09/27/22 08:59 Last Infusion: 08/19/22 10:47 Dose: 0 mls/hr Documented By: Admin: 08/19/22 09:45 Dose: 100 mls/hr Documented By: Infusion: 08/18/22 09:00 Dose: 0 mls/hr Documented By: Admin: 08/18/22 08:07 Dose: 100 mls/hr Documented By: Infusion: 08/17/22 08:46 Dose: 0 mls/hr Documented By: Admin: 08/17/22 08:01 Dose: 100 mls/hr Documented By: Infusion: 08/16/22 11:44 Dose: 0 mls/hr Documented By: Admin: 08/16/22 11:03 Dose: 100 mls/hr Documented By: ADY Vancomycin HCl 1,000 mg/ (Sodium Chloride) 270 mls @ 200 mls/hr IV Q12H ZEENAT; Protocol Stop: 09/27/22 21:59 Last Admin: 08/19/22 10:17 Dose: 200 mls/hr Documented By: Infusion: 08/18/22 22:25 Dose: 0 mls/hr Documented By: SADI(2) Admin: 08/18/22 21:04 Dose: 200 mls/hr Documented By: SADI(2) Isosorbide Mononitrate (Isosorbide [place] Extended Rel 30 Mg Tabcr) 30 mg PO QAM ZEENAT Stop: 09/15/22 08:59 Last Admin: 08/19/22 09:31 Dose: 30 mg Documented By: Admin: 08/18/22 08:05 Dose: 30 mg Documented By: Admin: 08/17/22 07:54 Dose: 30 mg Documented By: Admin: 08/16/22 07:20 Dose: 30 mg Documented By: CHETAN Losartan Potassium (Losartan Potassium 50 Mg Tab) 100 mg PO HS ZEENAT Stop: 09/15/22 20:59 Last Admin: 08/18/22 20:41 Dose: 100 mg Documented By: SADI(2) Admin: 08/17/22 19:15 Dose: 100 mg Documented By: Admin: 08/16/22 20:38 Dose: 100 mg Documented By: [email or web address]) Metoprolol Tartrate (Metoprolol Tartrate 50 Mg Tab) 50 mg PO BID ZEENAT Stop: 09/14/22 20:59 Last Admin: 08/19/22 10:18 Dose: Not Given Documented By: Admin: 08/18/22 21:34 Dose: 50 mg Documented By: SADI(2) Admin: 08/18/22 08:06 Dose: 50 mg Documented By: Admin: 08/17/22 19:15 Dose: Not Given Documented By: Admin: 08/17/22 07:52 Dose: 50 mg Documented By: Admin: 08/16/22 20:13 Dose: 50 mg Documented By: SADI(2) Admin: 08/16/22 07:21 Dose: 50 mg Documented By: Admin: 08/15/22 18:20 Dose: 50 mg Documented By: CHETAN Oxycodone HCl (Oxycodone Hcl Ir 5 Mg Tab (Immediate Release)) 5 - 10 mg PO Q4H PRN PRN Reason: Breakthrough Pain Stop: 08/29/22 17:17 Last Admin: 08/19/22 09:35 Dose: 10 mg Documented By: Admin: 08/18/22 13:51 Dose: 10 mg Documented By: SARAH Polyethylene Glycol (Polyethylene (Miralax) 17 Gm Pack) 17 gm PO TID ZEENAT Stop: 09/17/22 13:59 Last Admin: 08/19/22 10:18 Dose: 17 gm Documented By: Admin: 08/18/22 20:41 Dose: 17 gm Documented By: SADI(2) Admin: 08/18/22 13:48 Dose: 17 gm Documented By: SARAH Potassium Chloride (Potassium Chloride 10 Meq Tabcr) 10 meq PO BID ZEENAT Stop: 09/14/22 20:59 Last Admin: 08/19/22 09:36 Dose: 10 meq Documented By: Admin: 08/18/22 20:45 Dose: 10 meq Documented By: [email or web address]) Admin: 08/18/22 08:10 Dose: 10 meq Documented By: Admin: 08/17/22 19:19 Dose: 10 meq Documented By: Admin: 08/17/22 07:53 Dose: 10 meq Documented By: Admin: 08/16/22 20:12 Dose: 10 meq Documented By: SADI(2) Admin: 08/16/22 09:41 Dose: 10 meq Documented By: Admin: 08/15/22 20:19 Dose: 10 meq Documented By: SADI Sertraline HCl (Sertraline Hcl 100 Mg Tablet) 200 mg PO DAILY ZEENAT Stop: 09/15/22 08:59 Last Admin: 08/19/22 09:32 Dose: 200 mg Documented By: Admin: 08/18/22 08:05 Dose: 200 mg Documented By: Admin: 08/17/22 07:55 Dose: 200 mg Documented By: Admin: 08/16/22 09:42 Dose: 200 mg Documented By: ADY Discontinued Medications Fentanyl Citrate (Fentanyl Citrate Pf 100 Mcg/2 Ml Vial) Confirm Administered Dose 100 mcg .ROUTE .STK-MED ONE Stop: 08/19/22 08:12 Last Admin: 08/19/22 10:03 Dose: Not Given Documented By: CEFERINO Glycerin (Glycerin Adult 12 Supp/Box Supp) 1 supp [place] NOW ONE Stop: 08/18/22 11:24 Last Admin: 08/18/22 11:45 Dose: 1 supp Documented By: SARAH Hydromorphone HCl (Hydromorphone Inj 0.5 Mg/0.5 Ml Syr) 0.5 mg IV Q6H PRN PRN Reason: Pain Stop: 08/29/22 10:28 Last Admin: 08/15/22 22:01 Dose: 0.5 mg Documented By: Admin: 08/15/22 10:40 Dose: 0.5 mg Documented By: MARYAM Hydromorphone HCl (Hydromorphone Inj 0.5 Mg/0.5 Ml Syr) 0.5 mg IV Q6H PRN PRN Reason: Pain Stop: 08/29/22 17:17 Last Admin: 08/16/22 19:44 Dose: 0.5 mg Documented By: JOVANNI Sodium Chloride (Nss 1000ml) 500 mls @ 999 mls/hr IV .Q31M ONE Stop: 08/15/22 09:55 Last Infusion: 08/15/22 10:47 Dose: 0 mls/hr Documented By: Admin: 08/15/22 10:11 Dose: 999 mls/hr Documented By: MARYAM Sodium Chloride (Nss 1000ml) 1,000 mls @ 125 mls/hr IV .Q8H ZEENAT Stop: 09/14/22 09:29 Last Admin: 08/15/22 13:03 Dose: Not Given Documented By: Dextrose/Sodium Chloride (D5w And Nss) 1,000 mls @ 60 mls/hr IV .[id number] ONE Stop: 08/16/22 20:39 Last Infusion: 08/16/22 21:03 Dose: 0 mls/hr Documented By: SADI(2) Infusion: 08/16/22 04:59 Dose: 60 mls/hr Documented By: Infusion: 08/16/22 04:40 Dose: 0 mls/hr Documented By: Admin: 08/16/22 03:56 Dose: 60 mls/hr Documented By: SADI Phytonadione 5 mg/ Dextrose 50.5 mls @ 101 mls/hr IV ONE ONE Stop: 08/16/22 09:29 Last Infusion: 08/16/22 10:32 Dose: 0 mls/hr Documented By: Admin: 08/16/22 09:57 Dose: 101 mls/hr Documented By: ADY Vancomycin HCl 2,250 mg/ (Sodium Chloride) 545 mls @ 200 mls/hr IV NOW ONE; Protocol Stop: 08/16/22 11:43 Last Infusion: 08/16/22 11:45 Dose: 0 mls/hr Documented By: Infusion: 08/16/22 11:43 Dose: 9 mls/hr Documented By: Admin: 08/16/22 10:58 Dose: 200 mls/hr Documented By: ADY Vancomycin HCl 1,250 mg/ (Sodium Chloride) 275 mls @ 200 mls/hr IV Q18H [facility] Stop: 08/18/22 12:00 Last Infusion: 08/18/22 11:04 Dose: 0 mls/hr Documented By: Admin: 08/18/22 09:41 Dose: 200 mls/hr Documented By: Infusion: 08/17/22 17:08 Dose: 0 mls/hr Documented By: Admin: 08/17/22 15:45 Dose: 200 mls/hr Documented By: Infusion: 08/16/22 22:25 Dose: 0 mls/hr Documented By: SADI(2) Admin: 08/16/22 21:02 Dose: 200 mls/hr Documented By: [email or web address]) Insulin Aspart (Insulin Aspart Per Unit Charge) 0 units SC ACHS ZEENAT Stop: 09/14/22 17:29 Last Admin: 08/15/22 21:33 Dose: Not Given Documented By: Admin: 08/15/22 18:16 Dose: 4 units Documented By: CHETAN Co-signed By: ALEJO Insulin Aspart (Insulin Aspart Per Unit Charge) 0 units SC Q6 ZEENAT Stop: 09/15/22 05:59 Last Admin: 08/16/22 13:42 Dose: 4 units Documented By: ADY Co-signed By: MARIE Admin: 08/16/22 06:45 Dose: Not Given Documented By: SADI Insulin Aspart (Insulin Aspart Per Unit Charge) 0 units SC ACHS ZEENAT Stop: 09/29/22 16:29 Last Admin: 08/18/22 20:46 Dose: Not Given Documented By: SADI(2) Admin: 08/18/22 17:02 Dose: 105 units Documented By: SARAH Co-signed By: GET Admin: 08/18/22 11:58 Dose: 2 units Documented By: SARAH Co-signed By: GET Admin: 08/18/22 08:04 Dose: 2 units Documented By: SARAH Co-signed By: GET Admin: 08/17/22 20:31 Dose: Not Given Documented By: Admin: 08/17/22 17:06 Dose: 2 units Documented By: SARAH Co-signed By: GET Admin: 08/17/22 12:14 Dose: 3 units Documented By: SARAH Co-signed By: GET Admin: 08/17/22 08:09 Dose: 4 units Documented By: SARAH Co-signed By: GET Admin: 08/16/22 20:19 Dose: Not Given Documented By: [email or web address]) Co-signed By: JOVANNI Admin: 08/16/22 17:40 Dose: 4 units Documented By: ADY Co-signed By: MARIE Insulin Aspart (Insulin Aspart Per Unit Charge) 0 units SC Q6 ZEENAT Stop: 09/18/22 05:59 Last Admin: 08/19/22 05:55 Dose: Not Given Documented By: SADI(2) Lorazepam (Lorazepam 2 Mg/1 Ml Vial) 0.5 mg IV NOW STA Stop: 08/16/22 03:41 Last Admin: 08/16/22 03:52 Dose: 0.5 mg Documented By: SADI Losartan Potassium (Losartan Potassium 50 Mg Tab) 100 mg PO QAM [facility] Stop: 09/15/22 08:59 Last Admin: 08/16/22 07:20 Dose: 100 mg Documented By: CHETAN Ondansetron HCl (Ondansetron Inj 2 Mg/Ml 2 Ml Vial) 4 mg IV NOW STA Stop: 08/15/22 10:30 Last Admin: 08/15/22 10:40 Dose: 4 mg Documented By: MARYAM Oxycodone HCl (Oxycodone Hcl Ir 5 Mg Tab (Immediate Release)) 5 mg PO Q4H PRN PRN Reason: Moderate Pain (Scale 4, 5, 6) Stop: 08/29/22 17:17 Last Admin: 08/16/22 11:30 Dose: 5 mg Documented By: Admin: 08/15/22 22:46 Dose: 5 mg Documented By: Admin: 08/15/22 18:23 Dose: 5 mg Documented By: CHETAN Oxycodone HCl (Oxycodone Hcl Ir 5 Mg Tab (Immediate Release)) 5 mg PO Q4H PRN PRN Reason: Breakthrough Pain Stop: 08/29/22 17:17 Last Admin: 08/18/22 06:11 Dose: 5 mg Documented By: Admin: 08/18/22 02:28 Dose: 5 mg Documented By: Admin: 08/17/22 13:08 Dose: 5 mg Documented By: Admin: 08/17/22 01:41 Dose: 5 mg Documented By: JOVANNI Oxycodone HCl (Oxycodone Hcl Ir 5 Mg Tab (Immediate Release)) 5 mg PO NOW STA Stop: 08/17/22 14:10 Last Admin: 08/17/22 15:42 Dose: 5 mg Documented By: SARAH Phytonadione (Phytonadione 5 Mg Tab) 5 mg PO NOW STA Stop: 08/15/22 11:54 Last Admin: 08/15/22 12:03 Dose: 5 mg Documented By: AUGUSTIN Polyethylene Glycol (Polyethylene (Miralax) 17 Gm Pack) 17 gm PO DAILY ZEENAT Stop: 09/14/22 17:17 Last Admin: 08/18/22 08:10 Dose: 17 gm Documented By: Admin: 08/17/22 07:52 Dose: 17 gm Documented By: Admin: 08/16/22 09:42 Dose: 17 gm Documented By: Admin: 08/15/22 18:18 Dose: 17 gm Documented By: CHETAN Description This is a 21 electrode EEG with a single channel dedicated to limited EKG. The electrodes were placed in accordance with the International 10-20 system. Interpretation The predominant background activity consists of a Somewhat irregular 7-8 Hz activity, of up to 50 mV in amplitude,seen symmetrically distributed over the posterior head regions bilaterally. This activity has little attenuation with ey e-opening and other alerting procedures. Photic stimulation was performed and elicited no change in the background activity and no abnormal responses were seen. Hyperventilation was not performed. A mild amount of muscle and movement artifact activity contaminated the recording, yet did not hinder interpretation to any significant degree. Throughout the waking portion of the recording, no focal abnormalities, abnormal slow activity, or potentially epileptogenic discharges are seen. no abnormal involuntary movements were noted by the registered dietetic technician during the study The patient entered the drowsy state with no further activation. In summary, this EEG was normal during wakefulness and drowsiness. No focal abnormalities, potentially epileptogenic discharges, or abnormal slow activity was seen. Clinical Correlation The abscence of potentially epileptogenic activity does not exclude a seizure disorder, since interictally, EEGs can be normal. Clinical correlation is required. [facility] EEG Procedure Codes Indication for Procedure (1) Abnormal involuntary movements: Neurology Neurology: 49340 EEG include record awake & drowsy
[2022-08-19] MEDS: INSULIN ASPART PER UNIT CHARGE SC SCH ×3 (12:17→20:27)
--- NOTE | 2022-08-19 14:34 | CT Scan Report ---
CT-guided disc aspiration INDICATION: Discitis L3-4 PROCEDURE: Procedure and risks were explained. Informed consent was obtained. A final timeout was com pleted. The patient was placed prone on the CT exam table. The lower lumbar region was prepped and dr aped in sterile fashion. 1% buffered lidocaine was utilized for skin anesthesia. The patient received 25 mcg fentanyl IV during the procedure for pain. Utilizing CT guidance, an 18-gauge 15 cm Chiba needle was advanced into the L3-L4 disc space. One asp irate was obtained and sent to the lab for culture analysis. The needle was removed and Band-Aid appl ied. The patient tolerated the procedure well. Post CT imaging demonstrated no immediate complication . Vital signs will be monitored postprocedure on the floor. IMPRESSION: CT-guided disc aspiration as detailed above. Performed, dictated, and signed by Aime Rizo PA-C; to be co-signed by Dr. Ziggy Del Cid. Electronically signed by: Ziggy Del Cid M.D. 08/19/2022 2:37 PM
--- NOTE | 2022-08-19 18:25 | Hospitalist Progress Note ---
Date of Service August 19, 2022 Assessment & Plan (1) Discitis of lumbar region: Plan: Vanc/Rocephin, supportive care, ID consult. Blood cultures negative. Possible direct inoculation from trauma? PT with poor dentition--possible source? Of note patient lives in a trailer on 1 [address] and is retired. He cares for chickens, dogs, guinea pigs, and has two canaries. Per [facility] inpatient records review, he had a syncopal episode at the time of the fall because of a medication side effect for one that makes him drowsy/treats insomnia. Cont current therapy for now. (2) Closed L3 vertebral fracture: Plan: Trauma in May with subsequent L3 fracture, persistent pain and now with urinary incontinence. Had a UTI but this has long since been treated and no further evidence of infxn on repeat UA. CT reveals progressive erosive change and paravertebral edema at the L3-L4 disc space level with a small acute fracture at the left side of the L3 inferior endplate. No significant loss of h eight at this time. The progressive erosive change is nonspecific but concerning for a discitis/osteomyelitis. Pathologic lesions are considered less likely. -will restart ASA and plavix today post procedure and restart Coumadin in am. -he is doing better on the higher dose of oxycodone. Cont bowel regimen -broad abx started including vancomycin and Rocephin -per ID recs, awaiting cultures from today -PT/OT -TLSO brace per ortho (3) Tremor: Plan: resolved, uncertain etiology. Neuro saw him this am and recommended an EEG although seizure was felt to be less likely given no post-ictal weakness or pattern of movement as demonstrated by the patient. Could have been a tremor in reposne to pain. If EEG was normal and he doesn't require further workup at this time. (4) CAD (coronary artery disease): Plan: CABG x 4 in 2006, holding ASA and plavix for now in preparation for IR procedure Friday. Cont medical management with atorvastatin, imdur, losartan (5) Paroxysmal A-fib: Plan: Will start warfarin post procedure. Cont Lopressor BID and amiodarone per home regimen. (6) HTN (hypertension): Plan: Initially hypotensive so antihypertension drugs were held. Added back HCTZ 12.5 daily and losartan 100 daily and currently at goal (7) DM type 2 (diabetes mellitus, type 2): Plan: -Last A1c was 5.8, recheck with a.m. labs -ISS with Accu-Cheks ACHS, holding metformin -inpatient BSG at goal (8) Chronic kidney disease (CKD), stage III (moderate): Plan: chronic, stable. Cont to monitor DVT PPx: - scds/ambulation CODE: Conditional code, no CPR, intubation okay Dispo: pending ID finalized recommendations. I spent a total of60 minutes coordinating, documenting, and providing care for this patient excluding time spent in the performance of separately billed services Mckayla Sanchez DO [facility] and Anticipated Discharge Date Admission Date: August 15, 2022 Subjective 77 yo M presents for persistent lower back pain since a fall in May in his trailer. Pt reports pain is somewhat better today Discussed case with ortho spine who will order TSLO support brace Underwent IR disc aspiration with labs pending no complications [facility] of current IV abx pending samples to guide therapy Pt states he forgot to mention that he did supper an open facial wound that was superficial the night that he initially fell back in may. Review of Systems Review of Systems: All systems were reviewed and negative except as indiated on HPI above. Physical Exam Physical Exam: CONSTITUTIONAL: WNWD, vitals as above, generally well-appearing, NAD EYES: normal conjunctivae, no scleral icterus ENT: external ear and nose normal, poor dentition with missing teeth. NECK: trachea midline RESPIRATORY: clear to auscultation bilaterally, no crackles, rales or wheezes, normal respiratory effort CARDIOVASCULAR: regular rate and rhythm, S1 and 2 heard without murmurs, gallops or rubs, no JVD, no peripheral edema CHEST: +pacemaker GASTROINTESTINAL: soft MUSCULOSKELETAL: strength 5/5 in the lower extremities, head is normocephalic and atraumatic, Good ROM of lower extremities. SKIN: warm and dry, no rashes NEUROLOGIC: no facial palsy, no dysarthria. CN 2-12 grossly intact, no sensory deficit, normal cognition, normal speech, no tremor PSYCHIATRIC: alert cooperative and oriented to person, place and time. Euthymic mood, makes good eye contact, language grossly intact, recent and remote memory grossly intact. Results & Data Results & Data Vital Signs (Past 12 Hours) Vital Signs Temp Pulse Pulse Pulse Resp BP BP 08/19/22 15:45 36.4 C L 18 L 81 18 164/87 H 08/19/22 15:19 58 L 08/19/22 11:25 36.3 C L 60 16 113/69 08/19/22 10:00 08/19/22 09:00 08/19/22 10:16 36.7 C 58 L 18 154/92 H 08/19/22 09:29 36.5 C 57 L 16 182/97 H 08/19/22 07:43 36.5 C 61 16 160/92 H 08/19/22 06:57 55 L Pulse Ox Pulse Ox O2 Del Method O2 Del Method 08/19/22 15:45 96 Room Air 08/19/22 15:19 08/19/22 11:25 95 Room Air 08/19/22 10:00 Room Air 08/19/22 09:00 95 Room Air 08/19/22 10:16 94 Room Air 08/19/22 09:29 94 Room Air 08/19/22 07:43 95 Room Air 08/19/22 06:57 Laboratory Results Short CBC 08/19/22 Range/Units 06:13 WBC 5.64 (4.8-10.8) K/ul Hgb 11.1 L (14.0-18.0) g/dl Hct 34.6 L (42.0-52.0) % Plt Count 285 (130-400) K/uL BMP 08/19/22 06:13 Sodium 138 Potassium 4.1 Chloride 103 Carbon Dioxide 31 BUN 18 Creatinine 1.20 Glucose 98 Calcium 10.0 Diagnostic Findings Needle Aspiration CT 08/19/22 08:00 CT-guided disc aspiration INDICATION: Discitis L3-4 PROCEDURE: Procedure and risks were explained. Informed consent was obtained. A final timeout was completed. The patient was placed prone on the CT exam table. The lower lumbar region was prepped and draped in sterile fashion. 1% buffered lidocaine was utilized for skin anesthesia. The patient received 25 mcg fentanyl IV during the procedure for pain. Utilizing CT guidance, an 18-gauge 15 cm Chiba needle was advanced into the L3- L4 disc space. One aspirate was obtained and sent to the lab for culture analysis. The needle was removed and Band-Aid applied. The patient tolerated the procedure well. Post CT imaging demonstrated no immediate complication. Vital signs will be monitored postprocedure on the floor. IMPRESSION: CT-guided disc aspiration as detailed above. Performed, dictated, and signed by Aime Rizo PA-C; to be co-signed by Dr. Ziggy Del Cid. Electronically signed by: Ziggy Dle Cid M.D. 08/19/2022 2:37 PM Medications Administered Current Inpatient Medications Acetaminophen (Acetaminophen 325 Mg Tab) 650 mg PO Q4H PRN PRN Reason: Moderate Pain (Scale 4, 5, 6) Stop: 09/14/22 17:17 Last Admin: 08/15/22 22:00 Dose: 650 mg Acetaminophen (Acetaminophen 500 Mg Tab) 1,000 mg PO Q8 [facility] Stop: 09/15/22 09:29 Last Admin: 08/19/22 14:09 Dose: 1,000 mg Amiodarone HCl (Amiodarone 200 Mg Tab) 200 mg PO QAM [facility] Stop: 09/15/22 08:59 Last Admin: 08/19/22 09:32 Dose: 200 mg Atorvastatin Calcium (Atorvastatin 40 Mg Tab) 80 mg PO HS [facility] Stop: 09/14/22 20:59 Last Admin: 08/18/22 20:41 Dose: 80 mg Bisacodyl (Bisacodyl 5 Mg Tabec) 5 mg PO DAILY [facility] Stop: 09/14/22 17:17 Last Admin: 08/19/22 09:38 Dose: 5 mg Cyanocobalamin (Cyanocobalamin (B-12) 500 Mcg Tablet) 1,000 mcg PO DAILY [facility] Stop: 09/15/22 08:59 Last Admin: 08/19/22 09:31 Dose: 1,000 mcg Dextrose (Dextrose 50% 50 Ml Syringe) 25 - 50 ml IV UD PRN; Protocol PRN Reason: Hypoglycemia Protocol Stop: 09/14/22 17:17 Gabapentin (Gabapentin 100 Mg Cap) 100 mg PO TID [facility] Stop: 09/14/22 17:17 Last Admin: 08/19/22 14:09 Dose: 100 mg Glucagon (Glucagon For Inj 1 Mg Vial) 1 mg SQ UD PRN; Protocol PRN Reason: Hypoglycemia Protocol Stop: 09/14/22 17:17 Glucose (Glucose 10 Tab/Tube) 4 - 8 tab PO UD PRN; Protocol PRN Reason: Hypoglycemia Treatment Stop: 09/14/22 17:17 Glucose (Glucose 40% Gel 15 Gm Tube) 15 - 30 gm PO UD PRN; Protocol PRN Reason: Hypoglycemia Protocol Stop: 09/14/22 17:17 Hydrochlorothiazide (Hydrochlorothiazide 25 Mg Tab) 12.5 mg PO QAM [facility] Stop: 09/16/22 08:59 Last Admin: 08/19/22 09:32 Dose: 12.5 mg Ceftriaxone Sodium 2,000 mg/ (Dextrose) 70 mls @ 100 mls/hr IV Q24H [facility]; Protocol Stop: 09/27/22 08:59 Last Infusion: 08/19/22 10:47 Dose: Infused Vancomycin HCl 1,000 mg/ (Sodium Chloride) 270 mls @ 200 mls/hr IV Q12H [facility]; Protocol Stop: 09/27/22 21:59 Last Infusion: 08/19/22 11:45 Dose: Infused Insulin Aspart (Insulin Aspart Per Unit Charge) [address] [facility] Stop: 09/18/22 05:59 Last Admin: 08/19/22 17:05 Dose: 2 units Isosorbide Mononitrate (Isosorbide [place] Extended Rel 30 Mg Tabcr) [facility] Stop: 09/15/22 08:59 Last Admin: 08/19/22 09:31 Dose: 30 mg Lidocaine (Lidocaine 5% 1 Patch) 1 patch TD Q24H PRN PRN Reason: Pain Stop: 09/14/22 17:25 Lorazepam (Lorazepam 2 Mg/1 Ml Vial) 1 mg IV Q10M PRN PRN Reason: seizures Stop: 09/15/22 06:10 Losartan Potassium (Losartan Potassium 50 Mg Tab) 100 mg PO HS [facility] Stop: 09/15/22 20:59 Last Admin: 08/18/22 20:41 Dose: 100 mg Metoprolol Tartrate (Metoprolol Tartrate 50 Mg Tab) 50 mg PO BID [facility] Stop: 09/14/22 20:59 Last Admin: 08/19/22 10:18 Dose: Not Given Miscellaneous (Carbohydrates For Hypoglycemia ) 15 - 30 gm PO UD PRN PRN Reason: Hypoglycemia Protocol Stop: 09/14/22 17:17 Miscellaneous Information (Vancomycin Consult Active) 1 each N/A UD PRN PRN Reason: Consult Stop: 09/15/22 08:50 Ondansetron HCl (Ondansetron Inj 2 Mg/Ml 2 Ml Vial) 4 mg IV Q4H PRN PRN Reason: Nausea And Vomiting Stop: 09/14/22 17:17 Oxycodone HCl (Oxycodone Hcl Ir 5 Mg Tab (Immediate Release)) 5 - 10 mg PO Q4H PRN PRN Reason: Breakthrough Pain Stop: 08/29/22 17:17 Last Admin: 08/19/22 09:35 Dose: 10 mg Polyethylene Glycol (Polyethylene (Miralax) 17 Gm Pack) 17 gm PO TID [facility] Stop: 09/17/22 13:59 Last Admin: 08/19/22 14:10 Dose: 17 gm Potassium Chloride (Potassium Chloride 10 Meq Tabcr) 10 meq PO BID [facility] Stop: 09/14/22 20:59 Last Admin: 08/19/22 09:36 Dose: 10 meq Sertraline HCl (Sertraline Hcl 100 Mg Tablet) 200 mg PO DAILY [facility] Stop: 09/15/22 08:59 Last Admin: 08/19/22 09:32 Dose: 200 mg
[2022-08-19] MEDS: ASPIRIN 81 MG ECTAB PO SCH (18:35)
[2022-08-19] MEDS: ATORVASTATIN 40 MG TAB PO SCH (20:26)
[2022-08-19] MEDS: LOSARTAN POTASSIUM 50 MG TAB PO SCH (20:27)
[2022-08-20] MEDS: ACETAMINOPHEN 500 MG TAB PO SCH ×3 (05:10→21:28)
[2022-08-20 06:01] LABS: Creatinine Clr Calc Pharmacy 60.3 ml/min; Est GFR (African American) 66.1 ml/min; Est GFR (Non-African American) 57.1 ml/min
[2022-08-20 06:10] LABS: INR 1.1 (0.9-1.1); Prothrombin Time 12.2 Seconds (9.0-12.0)
[2022-08-20] MEDS: CLOPIDOGREL BISULFATE 75 MG TAB PO SCH (08:05)
[2022-08-20] MEDS: POLYETHYLENE (MIRALAX) 17 GM PACK PO SCH ×3 (08:05→21:29)
[2022-08-20] MEDS: ASPIRIN 81 MG ECTAB PO SCH (08:05)
[2022-08-20] MEDS: METOPROLOL TARTRATE 50 MG TAB PO SCH ×2 (08:05→21:29)
[2022-08-20] MEDS: GABAPENTIN 100 MG CAP PO SCH ×3 (08:05→21:28)
[2022-08-20] MEDS: AMIODARONE 200 MG TAB PO SCH (08:06)
[2022-08-20] MEDS: hydroCHLOROthiazide 25 MG TAB PO SCH (08:06)
[2022-08-20] MEDS: SERTRALINE HCL 100 MG TABLET PO SCH (08:06)
[2022-08-20] MEDS: ISOSORBIDE MONO EXTENDED REL 30 MG TABCR PO SCH (08:06)
[2022-08-20] MEDS: CYANOCOBALAMIN (B-12) 500 MCG TABLET PO SCH (08:07)
[2022-08-20] MEDS: bisacodyL 5 MG TABEC PO SCH (08:10)
[2022-08-20] MEDS: POTASSIUM CHLORIDE 10 MEQ TABCR PO SCH ×2 (08:10→21:34)
[2022-08-20] MEDS: cefTRIAXone SODIUM 2,000 MG in DEXTROSE 5% 50 ML IV SCH (08:11)
[2022-08-20] MEDS: INSULIN ASPART PER UNIT CHARGE SC SCH ×4 (08:11→21:31)
--- NOTE | 2022-08-20 09:43 | Pharmacy Report ---
Pharmacy PK ABX Note - Date of Service August 20, 2022 - Assessment and Plan Assessment 77 year old M receiving vancomycin and ceftriaxone for concern of possible discitis/osteomyelitis in context of lumbar spinal fracture. Pertinent microbiologic data includes: blood cultures x 2 (08/15) NGTD. 08/19- CSF/Joint cultures pending. Day # 5 of antimicrobial therapy. Plan Vancomycin * Random vancomycin level this morning came back at ~20 mcg/ml - current dosing of vancomycin predicted to achieve target AUC/ANG 400-600 therefore will continue current regimen of 1 gm iv q 12 hours * Scr remains stable. Will plan to collect another random level in next 2-3 days if continued Ceftriaxone * 2 g IV q24h - appropriate, no change Pharmacy has transitioned to AUC monitoring for vancomycin. AUC/ANG is the preferred PK/PD target and is associated with decreased risk of nephrotoxicity compared to traditional trough targets.
[2022-08-20] MEDS: VANCOMYCIN HCL 1,000 MG in SODIUM CHLORIDE 0.9% 250 ML IV SCH ×2 (09:56→22:16)
--- NOTE | 2022-08-20 12:51 | Hospitalist Progress Note ---
Date of Service August 20, 2022 Assessment & Plan (1) Discitis of lumbar region: Plan: Vanc/Rocephin, supportive care, ID consult. Blood cultures negative. Possible direct inoculation from trauma? PT with poor dentition--possible source? Of note patient lives in a trailer on 1 [address] and is retired. He cares for chickens, dogs, guinea pigs, and has two canaries. Per [facility] inpatient records review, he had a syncopal episode at the time of the fall because of a medication side effect for one that makes him drowsy/treats insomnia. Cont current therapy for now x 6 weeks. Awaiting culture results from disc aspirate yesterday. PICC line placement today planned. (2) Closed L3 vertebral fracture: Plan: Trauma in May with subsequent L3 fracture, persistent pain and now with urin nicho incontinence. Had a UTI but this has long since been treated and no further evidence of infxn on repeat UA. CT reveals progressive erosive change and paravertebral edema at the L3-L4 disc space level with a small acute fracture at the left side of the L3 inferior endplate. No significant loss of height at this time. The progressive erosive change is nonspecific but concerning for a discitis/osteomyelitis. Pathologic lesions are considered less likely. -ASA, plavix and coumadin were restarted and no evidence of bleeding or worsening overnight. -He hasn't required any oxycodone since 2200 last night, appears pain is improving. -TLSO brace per ortho -safe to return home per therapy (3) Tremor: Plan: resolved, uncertain etiology. Neuro saw him this am and recommended an EEG although seizure was felt to be less likely given no post-ictal weakness or pattern of movement as demonstrated by the patient. Could have been a tremor in response to pain and has not returned. EEG was normal, no further workup is indicated. (4) CAD (coronary artery disease): Plan: CABG x 4 in 2006, restarted aspirin and Plavix yesterday. Cont medical management with atorvastatin, imdur, losartan (5) Paroxysmal A-fib: Plan: Continue warfarin with close MTM follow-up to ensure INR in therapeutic range. Currently subtherapeutic. Cont Lopressor BID and amiodarone per home regimen. (6) HTN (hypertension): Plan: Initially hypotensive so antihypertension drugs were held. Added back HCTZ 12.5 daily and losartan 100 daily and currently at goal (7) DM type 2 (diabetes mellitus, type 2): Plan: -Last A1c was 5.8, recheck with a.m. labs -ISS with Accu-Cheks ACHS, holding metformin -inpatient BSG at goal (8) Chronic kidney disease (CKD), stage III (moderate): Plan: chronic, stable. Cont to monitor DVT PPx: - scds/ambulation CODE: Conditional code, no CPR, intubation okay Dispo: initial cultures negative, plan for home with IV vanc/Rocpehin as soon as PICC can be placed and abx infusions set up. I spent a total of60 minutes coordinating, documenting, and providing care for this patient excluding time spent in the performance of separately billed services DO [facility] Hospitalist Admission and Anticipated Discharge Date Admission Date: August 15, 2022 Subjective 77 yo M presents for persistent lower back pain since a fall in May in his trailer. gram stain negative with cultures pending from yesterday Pt is afebrile, has remained HD stable and it appears his pain is improving He is interested in discharge and I discussed the plan with ID Pt consented for PICC to be placed today for 6 weeks abx. He states his daughter is an RN so she can help with the infusions at home. Review of Systems Review of Systems: All systems were reviewed and negative except as indiated on HPI above. Physical Exam Physical Exam: CONSTITUTIONAL: WNWD, vitals as above, generally well-appearing, NAD EYES: normal conjunctivae, no scleral icterus ENT: external ear and nose normal, poor dentition with missing teeth. NECK: trachea midline RESPIRATORY: clear to auscultation bilaterally, no crackles, rales or wheezes, normal respiratory effort CARDIOVASCULAR: regular rate and rhythm, S1 and 2 heard without murmurs, gallops or rubs, no JVD, no peripheral edema CHEST: +pacemaker GASTROINTESTINAL: soft MUSCULOSKELETAL: strength 5/5 in the lower extremities, head is normocephalic and atraumatic, Good ROM of lower extremities. SKIN: warm and dry, no rashes NEUROLOGIC: no facial palsy, no dysarthria. CN 2-12 grossly intact, no sensory deficit, normal cognition, normal speech, no tremor PSYCHIATRIC: alert cooperative and oriented to person, place and time. Euthymic mood, makes good eye contact, language grossly intact, recent and remote memory grossly intact. Results & Data Results & Data Vital Signs (Past 12 Hours) Vital Signs Temp Pulse Pulse Resp BP Pulse Ox O2 Del Method 08/20/22 10:56 36.5 C 60 17 115/69 97 Room Air 08/20/22 08:30 Room Air 08/20/22 07:27 36.5 C 62 18 159/90 H 97 Room Air 08/20/22 07:00 62 08/20/22 04:47 61 08/20/22 03:34 36.6 C 94 H 20 120/67 97 Room Air Laboratory Results BMP 08/20/22 05:27 Creatinine 1.23 Medications Administered Current Inpatient Medications Acetaminophen (Acetaminophen 325 Mg Tab) 650 mg PO Q4H PRN PRN Reason: Moderate Pain (Scale 4, 5, 6) Stop: 09/14/22 17:17 Last Admin: 08/15/22 22:00 Dose: 650 mg Acetaminophen (Acetaminophen 500 Mg Tab) 1,000 mg PO Q8 [facility] Stop: 09/15/22 09:29 Last Admin: 08/20/22 05:10 Dose: 1,000 mg Amiodarone HCl (Am[facility]arone 200 Mg Tab) [facility] Stop: 09/15/22 08:59 Last Admin: 08/20/22 08:06 Dose: 200 mg Aspirin (Aspirin 81 Mg Ectab) 81 mg PO QAM [facility] Stop: 09/18/22 18:29 Last Admin: 08/20/22 08:05 Dose: 81 mg Atorvastatin Calcium (Atorvastatin 40 Mg Tab) 80 mg PO HS [facility] Stop: 09/14/22 20:59 Last Admin: 08/19/22 20:26 Dose: 80 mg Bisacodyl (Bisacodyl 5 Mg Tabec) 5 mg PO DAILY [facility] Stop: 09/14/22 17:17 Last Admin: 08/20/22 08:10 Dose: 5 mg Clopidogrel Bisulfate (Clopidogrel Bisulfate 75 Mg Tab) 75 mg PO QAM [facility] Stop: 09/19/22 08:59 Last Admin: 08/20/22 08:05 Dose: 75 mg Cyanocobalamin (Cyanocobalamin (B-12) 500 Mcg Tablet) 1,000 mcg PO DAILY [facility] Stop: 09/15/22 08:59 Last Admin: 08/20/22 08:07 Dose: 1,000 mcg Dextrose (Dextrose 50% 50 Ml Syringe) 25 - 50 ml IV UD PRN; Protocol PRN Reason: Hypoglycemia Protocol Stop: 09/14/22 17:17 Gabapentin (Gabapentin 100 Mg Cap) 100 mg PO TID [facility] Stop: 09/14/22 17:17 Last Admin: 08/20/22 08:05 Dose: 100 mg Glucagon (Glucagon For Inj 1 Mg Vial) 1 mg SQ UD PRN; Protocol PRN Reason: Hypoglycemia Protocol Stop: 09/14/22 17:17 Glucose (Glucose 10 Tab/Tube) 4 - 8 tab PO UD PRN; Protocol PRN Reason: Hypoglycemia Treatment Stop: 09/14/22 17:17 Glucose (Glucose 40% Gel 15 Gm Tube) 15 - 30 gm PO UD PRN; Protocol PRN Reason: Hypoglycemia Protocol Stop: 09/14/22 17:17 Hydrochlorothiazide (Hydrochlorothiazide 25 Mg Tab) 12.5 mg PO QAM [facility] Stop: 09/16/22 08:59 Last Admin: 08/20/22 08:06 Dose: 12.5 mg Ceftriaxone Sodium 2,000 mg/ (Dextrose) 70 mls @ 100 mls/hr IV Q24H [facility]; P rotocol Stop: 09/27/22 08:59 Last Infusion: 08/20/22 08:57 Dose: Infused Vancomycin HCl 1,000 mg/ (Sodium Chloride) 270 mls @ 200 mls/hr IV Q12H [facility]; Protocol Stop: 09/27/22 21:59 Last Infusion: 08/20/22 11:18 Dose: Infused Insulin Aspart (Insulin Aspart Per Unit Charge) 0 units SC ACHS [facility] Stop: 09/18/22 05:59 Last Admin: 08/20/22 11:55 Dose: 2 units Isosorbide Mononitrate (Isosorbide [place] Extended Rel 30 Mg Tabcr) 30 mg PO QAM [facility] Stop: 09/15/22 08:59 Last Admin: 08/20/22 08:06 Dose: 30 mg Lidocaine (Lidocaine 5% 1 Patch) 1 patch TD Q24H PRN PRN Reason: Pain Stop: 09/14/22 17:25 Lorazepam (Lorazepam 2 Mg/1 Ml Vial) 1 mg IV Q10M PRN PRN Reason: seizures Stop: 09/15/22 06:10 Losartan Potassium (Losartan Potassium 50 Mg Tab) 100 mg PO HS [facility] Stop: 09/15/22 20:59 Last Admin: 08/19/22 20:27 Dose: 100 mg Metoprolol Tartrate (Metoprolol Tartrate 50 Mg Tab) 50 mg PO BID [facility] Stop: 09/14/22 20:59 Last Admin: 08/20/22 08:05 Dose: 50 mg Miscellaneous (Carbohydrates For Hypoglycemia ) 15 - 30 gm PO UD PRN PRN Reason: Hypoglycemia Protocol Stop: 09/14/22 17:17 Miscellaneous Information (Vancomycin Consult Active) 1 each N/A UD PRN PRN Reason: Consult Stop: 09/15/22 08:50 Ondansetron HCl (Ondansetron Inj 2 Mg/Ml 2 Ml Vial) 4 mg IV Q4H PRN PRN Reason: Nausea And Vomiting Stop: 09/14/22 17:17 Oxycodone HCl (Oxycodone Hcl Ir 5 Mg Tab (Immediate Release)) 5 - 10 mg PO Q4H PRN PRN Reason: Breakthrough Pain Stop: 08/29/22 17:17 Last Admin: 08/19/22 22:47 Dose: 10 mg Polyethylene Glycol (Polyethylene (Miralax) 17 Gm Pack) 17 gm PO TID [facility] Stop: 09/17/22 13:59 Last Admin: 08/20/22 08:05 Dose: 17 gm Potassium Chloride (Potassium Chloride 10 Meq Tabcr) 10 meq PO BID [facility] Stop: 09/14/22 20:59 Last Admin: 08/20/22 08:10 Dose: 10 meq Sertraline HCl (Sertraline Hcl 100 Mg Tablet) 200 mg PO DAILY [facility] Stop: 09/15/22 08:59 Last Admin: 08/20/22 08:06 Dose: 200 mg Warfarin Sodium (Warfarin Sod 5 Mg Tab) 5 mg PO DAILY@1600 [facility] Stop: 09/19/22 15:59
[2022-08-20] MEDS ORDERED: WARFARIN SOD 5 MG TAB PO SCH (16:00)
[2022-08-20] MEDS: ATORVASTATIN 40 MG TAB PO SCH (21:28)
[2022-08-20] MEDS: LOSARTAN POTASSIUM 50 MG TAB PO SCH (21:28)
[2022-08-21] MEDS: ACETAMINOPHEN 500 MG TAB PO SCH ×2 (06:10→13:43)
[2022-08-21 07:41] LABS: INR 1.1 (0.9-1.1); Prothrombin Time 12.1 Seconds (9.0-12.0)
[2022-08-21 08:01] LABS: Creatinine Clr Calc Pharmacy 67.2 ml/min; Est GFR (African American) 75.7 ml/min; Est GFR (Non-African American) 65.3 ml/min
[2022-08-21] MEDS: INSULIN ASPART PER UNIT CHARGE SC SCH ×2 (08:12→12:34)
[2022-08-21] MEDS: SERTRALINE HCL 100 MG TABLET PO SCH (09:32)
[2022-08-21] MEDS: ISOSORBIDE MONO EXTENDED REL 30 MG TABCR PO SCH (09:32)
[2022-08-21] MEDS: CLOPIDOGREL BISULFATE 75 MG TAB PO SCH (09:32)
[2022-08-21] MEDS: bisacodyL 5 MG TABEC PO SCH (09:33)
[2022-08-21] MEDS: GABAPENTIN 100 MG CAP PO SCH ×2 (09:33→13:43)
[2022-08-21] MEDS: CYANOCOBALAMIN (B-12) 500 MCG TABLET PO SCH (09:33)
[2022-08-21] MEDS: AMIODARONE 200 MG TAB PO SCH (09:33)
[2022-08-21] MEDS: hydroCHLOROthiazide 25 MG TAB PO SCH (09:33)
[2022-08-21] MEDS: ASPIRIN 81 MG ECTAB PO SCH (09:33)
[2022-08-21] MEDS: METOPROLOL TARTRATE 50 MG TAB PO SCH (09:33)
[2022-08-21] MEDS: POTASSIUM CHLORIDE 10 MEQ TABCR PO SCH (09:33)
[2022-08-21] MEDS: POLYETHYLENE (MIRALAX) 17 GM PACK PO SCH ×2 (09:36→13:43)
[2022-08-21] MEDS: cefTRIAXone SODIUM 2,000 MG in DEXTROSE 5% 50 ML IV SCH (10:32)
[2022-08-21] MEDS: VANCOMYCIN HCL 1,000 MG in SODIUM CHLORIDE 0.9% 250 ML IV SCH (11:19)
--- NOTE | 2022-08-21 13:47 | Discharge Summary ---
Date of Service August 21, 2022 Admission HPI Per Admitting Provider This is a 77-year-old male with PMHx of CAD, CABG, paroxysmal A-fib with pacemaker, anticoagulated with Coumadin and Plavix, HTN, CKD, DM type II. He sustained a mechanical fall on 05/26/2022 where he subsequently developed lower back pain which radiated down into the left buttock, lateral thigh and occasionally into his calf. He presented to [facility] and [facility] emergency on multiple occasions since such injury. CT L hip - no acute fracture or AVN, mild OA. CT lumbar spine - mild scoliotic curvature with subtle defect of anterior superior endplate L4 which is new since 10/06/21, moderate facet arthropathy, no significant central or foraminal narrowing. CT pelvis - no acute fracture. Surgical consultation 06/25, recommended conservative care for the subtle compression fracture at L3/4. He was recently set up to follow with orthopedic spine in [facility], and is scheduled on 08/27/2022. He then is temporarily scheduled for lumbar spine procedure on 09/30 at [facility]. It appears that they were going to hold Plavix x1 week and Coumadin x5 days prior to this procedure on outpatient epic review. Today the patient INR is 2.3. He reports that his pain has gotten worse over the last few days, has been using a cane and a walker at baseline, and notes that his pain currently is a 6/7 after receiving medication here in the ER. At home he has only been using Tylenol. He did not feel that he can wait until mid September for a pain management injection in his spine, so presented here in hopes of getting things expedited. Admission Exam Per Admitting Provider General: awake, alert, no apparent distress, +unkempt Head: Normocephalic, atraumatic ENT: PERRL, EOMI, no pharyngeal exudate, mucous membranes moist, + poor dentition Chest: Clear to auscultation, on room air, no adventitious breath sounds Cardiac: Regular rate and rhythm, no murmur, no JVD, normal peripheral pulses, good capillary refill Abdominal: NABS x 4 quadrants, soft, nondistended, nontender to palpation, no rebound or guarding Back: Point tenderness over L3-L4 space, pain with palpation along left sided lower back Extremities: Normal inspection, no peripheral edema or erythema, calfs nontender to palpation Psych: Normal mood and affect Neuro: AAO x 3, strength intact bilaterally and rated 5/5, no motor deficits, speech is clear, no peripheral sensory deficits Skin: arce Principal Diagnosis Possible Discitis, L3 fracture Discharge Exam CONSTITUTIONAL: WNWD, NAD EYES: normal conjunctivae, no scleral icterus ENT: external ear and nose normal, poor dentition with missing teeth. NECK: trachea midline, supple RESPIRATORY: clear to auscultation bilaterally, no crackles, rales or wheezes, normal respiratory effort CARDIOVASCULAR: regular rate and rhythm, S1 and 2 heard without murmurs, gallops or rubs, no JVD, no peripheral edema CHEST: +pacemaker GASTROINTESTINAL: soft abdomen, nontender, positive bowel sounds MUSCULOSKELETAL: head is normocephalic and atraumatic,moves extremities SKIN: warm and dry, no rashes NEUROLOGIC: no facial palsy, no dysarthria.no sensory deficit, normal cognition, normal speech, no tremor, moves extremities PSYCHIATRIC: alert cooperative and oriented to person, place and time. Euthymic mood Discharge Data Allergies Allergy/AdvReac Type Severity Reaction Status Date / Time tamsulosin [From Flomax] Allergy Severe It made me Unverified 08/15/22 11:24 pass out Consultations 08/15/22 11:52 Consult Orthopedic Surgery Routine 08/15/22 12:24 ED Decision to Admit Stat 08/16/22 06:11 Consult Neurology Routine 08/17/22 07:50 Consult Infectious Diseases Routine 08/21/22 09:48 Consult Orthopedic Spine Surgery Routine Ordered Studies 08/15/22 09:21 CT lumbar spine wo con Stat FINDINGS: The skeletal structures are osteopenic. Vertebral body height is devi ntained throughout the lumbar spine. There is a small acute fracture of the left inferior endplate of L3. No additional acute fracture is seen. There is no malalignment. There is developing erosive change within the inferior endplate of L3 and the superior endplate of L4 with significant paravertebral edema. This represents a significant change from 06/22/2022. The appearance is highly suspicious for discitis/osteomyelitis. The transverse and spinous processes appear intact. Anterior and lateral marginal osteophytes are seen throughout. There is no spondylolysis. No osteoblastic disease is seen. There is moderate disc space narrowing at L3-L4. Mild disc space narrowing is seen at the remaining lumbar levels. Posterior disc osteophyte complexes are seen at several levels. There is no CT evidence of high-grade central canal stenosis. Mild facet arthropathy is noted in the lower lumbar region. Minimal dextrocurvature is centered at L3. The visualized sacrum and bony pelvis appear intact. There is mild fatty atrophy of the paraspinous musculature. Advanced atherosclerotic calcification is noted in the abdominal aorta. IMPRESSION: 1. There is significant erosive endplate change on both sides of the disc at L3- L4 with associated paravertebral edema. This has significantly progressed as compared to 06/22/2022 and is highly suspicious for discitis/osteomyelitis. Rapidly progressive erosive degenerative change is considered less likely but could appear similar. Clinical correlation will be essential. 2. Small acute fracture of the left side of the L3 inferior endplate. 3. No additional fracture is identified. 4. Osteopenia and mild spondylosis as above. 08/15/22 09:25 CT Abd and Pelvis [CT abd pelvis wo con] Stat FINDINGS: Small calcified pleural plaque within the left lung posteriorly. No pneumoperitoneum. No pneumatosis. There are poststernotomy changes. Old, healed left-sided rib fractures are noted. Paravertebral edema at the L3-L4 level has progressed. There scattered erosive changes within the inferior endplate of L3 and superior endplate of L4 which have also progressed. Dominant focus of erosion at the inferior endplate of L3 measures 1.8 cm. There is an acute nondisplaced fracture within the left lateral aspect of the L3 inferior endplate. No significant loss of height at this time. Mild dextroscoliosis again noted. Pacemaker wires are noted. Cholelithiasis. No gallbladder wall thickening. There are 2 small hypodense lesions within the liver with the largest measuring 8 mm. These are technically too small to characterize but favor cysts. The unenhanced spleen, adrenal glands, and pancreas unremarkable. No renal or ureteral stones. No hydronephrosis. There is a 1 cm hypodense lesion within the upper pole of the right kidney. This is incompletely characterized on this noncontrast study but favors a cyst. No retroperitoneal lymphadenopathy. Moderate calcified plaque within the normal caliber abdominal aorta. No pelvic lymphadenopathy or pelvic free fluid. Normal bladder. Suboptimal evaluation for bowel pathology due to the lack of intravenous and oral contrast. However, there is no definite bowel wall thickening or obstruction. The appendix is surgically absent. IMPRESSION: 1. Progressive erosive change and paravertebral edema at the L3-L4 disc space level with a small acute fracture at the left side of the L3 inferior endplate. No significant loss of height at this time. The progressive erosive change is nonspecific but concerning for a discitis/osteomyelitis. Pathologic lesions are considered less likely. 2. No bowel wall thickening or obstruction. 3. Cholelithiasis. No gallbladder wall thickening. 4. Additional findings as described above. 08/16/22 03:45 CT cervical spine wo con Stat CT head/brain wo con Stat 08/19/22 08:00 IR spine (disc) aspiration Routine Hospital Course (1) Discitis of lumbar region: Vanc/Rocephin, supportive care, ID consult. Blood cultures negative. Possible direct inoculation from trauma? PT with poor dentition--possible source? Of note patient lives in a trailer on [address] and is retired. He cares for chickens, dogs, guinea pigs, and has two canaries. Per [facility] inpatient records review, he had a syncopal episode at the time of the fall because of a medication side effect for one that makes him drowsy/treats insomnia. Cont current therapy for now x 6 weeks. Awaiting culture results from disc aspirate . PICC line placed. Home health arranged. (2) Closed L3 vertebral fracture: Trauma in May with subsequent L3 fracture, persistent pain and now with urinary incontinence. Had a UTI but this has long since been treated and no further evidence of infxn on repeat UA. CT reveals progressive erosive change and paravertebral edema at the L3-L4 disc space level with a small acute fract ure at the left side of the L3 inferior endplate. No significant loss of height at this time. The progressive erosive change is nonspecific but concerning for a discitis/osteomyelitis. Pathologic lesions are considered less likely. -ASA, plavix and coumadin were restarted and no evidence of bleeding or worsening overnight. -pain is improving. -TLSO brace per ortho -safe to return home per therapy (3) Tremor: resolved, uncertain etiology. Neuro saw him this AM and recommended an EEG although seizure was felt to be less likely given no post-ictal weakness or pattern of movement as demonstrated by the patient. Could have been a tremor in response to pain and has not returned. EEG was normal, no further workup is indicated. (4) CAD (coronary artery disease): CABG x 4 in 2006, restarted aspirin and Plavix. Cont medical management with atorvastatin, imdur, losartan (5) Paroxysmal A-fib: Continue warfarin with close MTM follow-up to ensure INR in therapeutic range. Currently subtherapeutic. Cont Lopressor BID and amiodarone per home regimen. (6) HTN (hypertension): Initially hypotensive so antihypertension drugs were held. Added back HCTZ 12.5 daily and losartan 100 daily and currently at goal (7) DM type 2 (diabetes mellitus, type 2): -Last A1c was 5.8, recheck with a.m. labs -ISS with Accu-Cheks ACHS, holding metformin -inpatient BSG at goal (8) Chronic kidney disease (CKD), stage III (moderate): chronic, stable. Cont to monitor Total Time Total Time Spent Total Time Spent (In Minutes): 40 Discharge Plan Discharge Items Patient Disposition: Home - Home Health Services Reason For Visit: L3 ENDPLATE FRACTURE/DISCITIS Discharge Diagnosis: Possible Discitis, L3 fracture Activity: Per Instructions section Non-emergency contact: Primary Care Provider and Specialist Call non-emergency contact if: you have any medication questions and your symptoms worsen Follow-up/Referrals: Tara Banerjee CRNP [Primary Care Provider] - (Date & Time 08/27/2022 9:00 AM Provider Nikole Hodgson PA-C Department [facility] ) Diet: Carb Consistent or DM2 and Heart Healthy Addtl Attending Provider Instructions: Follow with primary care physician, and infectious disease. Follow-up with primary care physician was scheduled for you for August 27. Continue IV antibiotics with IV vancomycin, and Rocephin, as already prescribed, home health arranged for you as well. Pending Studies at Discharge: Yes Studies:: Final cultures disc aspirate Stand-Alone Forms: My [place], Smoking Cessation Medications and DC Order Prescriptions: New oxycodone 5 mg Tablet 5 mg PO TID PRN (Reason: pain) Qty: 10 0RF Continued atorvastatin 80 mg tablet 80 mg PO HS lidocaine 4 % adhesive patch,medicated 1 patch TOPICAL QAM PRN (Reason: Pain) tizanidine 4 mg tablet 2 - 4 mg PO BID PRN (Reason: MUSCLE SPASMS) amiodarone 200 mg tablet 200 mg PO QAM isosorbide mononitrate 30 mg tablet extended release 24 hr 30 mg PO QAM sertraline 100 mg tablet 200 mg PO DAILY cyanocobalamin (vitamin B-12) [Vitamin B-12] 1,000 mcg Tablet 1,000 mcg PO DAILY potassium chloride 10 mEq tablet extended release 10 meq PO BID clopidogrel 75 mg tablet 75 mg PO QAM warfarin 2 mg tablet 2 mg PO HS Rx Instructions: 2 mg on all days except Mon and Fri takes 1 mg metoprolol tartrate 50 mg tablet 50 mg PO BID hydrochlorothiazide 12.5 mg capsule 12.5 mg PO QAM nitroglycerin 0.4 mg tablet, sublingual 0.4 mg sublingual DIRECTED PRN (Reason: Chest Pain) gabapentin 100 mg capsule 100 mg PO TID losartan 100 mg tablet 100 mg PO QAM sildenafil (pulm.hypertension) 20 mg tablet 20 mg PO DAILY PRN (Reason: Sexual Activity) metformin 500 mg tablet extended release 24 hr 500 mg PO BID Discharge Orders: Discharge Order (Routine); Ordered 08/21/22 Ordered By: Jaswant Goss/Other Patient Handouts: A1C Admission Data Admit Date/Time: 08/15/22 11:52 Attending Provider: Jaswant Holbrook Admit Provider: Anjelica Washington Primary Care Provider: Tara Banerjee Other Providers: Sarina Owens ; [facility] ; Rob Mario ; Anjelica Washington ; Moris Fowler ; Dakota Gardner ; Ophelia Bolton ; Judd Tovar ; Ophelia Santizo ; Jaxson Bowman ; Jeramy Julio ; Chilo Paris ; Jared Strong ; Zandra Dunbar ; Judd Ignacio ; Jaxson Ash ; Dennis Owens ; Yamilex Conroy ; Bong Bryan ; Nick Garcia ; Wallace Lance ; Bertin Owens I. ; Sriram Dias II ; Ruth Abreu ; Daniel Garg ; Maldonado Arteaga ; Lai Herrmann ; Mckayla Sanchez
== END 2022-08-21 14:50 | disposition home health service (06) | DRG 552 ==
LOC: ED 08:26 → 3E 11:52 → SUATTDRO 11:52 → 3E 14:40 → 2N 08-16 08:50